=== PATIENT | female | born 1995 | race Caucasian/White ===

== ENCOUNTER 2022-10-23 09:21 | Observation (INO) | payer OTHER, SELFPAY ==
--- NOTE | 2022-10-23 09:21 | OBADM ---
This patient, Nirmala Hidalgo, admitted to the OB room Labor/Delivery/Recovery 105 for observation. Patient/family oriented to hospital policies and general routines including ID bracelet, bed and alarms, visiting hours, pain management, procedures, bathroom and other care routines, personal items, smoking policy, room service/diet, and visiting hours. Patient/Family are encouraged to report perceived risks to care and to ask questions if they do not understand what they are told or what they should do.
[2022-10-23 10:30] VITALS: BMI 34.7
--- NOTE | 2022-10-25 07:25 | PM.OBTRLD ---
OB - Triage/Final Diagnosis Visit Information Date of evaluation: 10/24/22 Reason for evaluation: threatened labor Comments/Additional reasons for admission: I have assessed the risk for this patient, Nirmala Hidalgo, and determined that she would benefit from observation care.
== END 2022-10-23 11:05 | disposition home or self-care (01) ==
PROVIDERS: Admitting Provider Obstetrics & Gynecology; Visit Provider Obstetrics & Gynecology
DX: O47.1 False labor at or after 37 completed weeks of gestation (principal); Z3A.40 40 weeks gestation of pregnancy
CPT/HCPCS: G0378; G0379

== ENCOUNTER 2022-10-23 21:35 | Observation (INO) | payer OTHER, SELFPAY ==
[2022-10-23 21:50] VITALS: BMI 34.5
[2022-10-23 22:50] VITALS: RESP 18; TEMP 36.4
--- NOTE | 2022-10-23 23:17 | OBADM ---
This patient, Nirmala Hidalgo, admitted to the OB room Labor/Delivery/Recovery 104 for observation. Patient/family oriented to hospital policies and general routines including ID bracelet, bed and alarms, visiting hours, pain management, procedures, bathroom and other care routines, personal items, smoking policy, room service/diet, and visiting hours. Patient/Family are encouraged to report perceived risks to care and to ask questions if they do not understand what they are told or what they should do.
--- NOTE | 2022-10-30 07:30 | PM.OBTRLD ---
OB - Triage/Final Diagnosis Visit Information Date of evaluation: 10/23/22 Reason for evaluation: threatened labor Comments/Additional reasons for admission: I have assessed the risk for this patient, Nirmala Hidalgo, and determined that she would benefit from observation care.
== END 2022-10-23 23:17 | disposition home or self-care (01) ==
PROVIDERS: Admitting Provider Obstetrics & Gynecology; Visit Provider Obstetrics & Gynecology
DX: O47.9 False labor, unspecified (principal); Z3A.00 Weeks of gestation of pregnancy not specified
CPT/HCPCS: G0378; G0379

== ENCOUNTER 2022-10-24 07:50 | Inpatient (IN) | payer OTHER, SELFPAY ==
[2022-10-24] VITALS (159 sets, daily range): BP systolic 57–151; BP diastolic 29–120; PULSE 42–164; RESP 18–20; TEMP 36.3–37.5; O2SAT 82–100; BMI 34.6
--- OUTSIDE RECORDS SUMMARY | 2022-10-24 08:07 | XMS_ITS | Clinical Summary ---
Author Name Transmission Worker Address [address] [place] [address] Phone Organization [facility] Address [address] [place] [address] Phone Care Team Providers Care Picker / Packer Name Role Phone ELISSA EstrellaLEONARD Cristóbal Hernandez [phone] Reason for Visit and Chief Complaint The Chief Complaint is: for about 2 weeks been having cough, headache, runny nose and right ear pain. not vaccinated. last exposure was . was tested couple weeks ago was negative and started zpak Problems Includes: Problems addressed during this encounter and other active Problems No Active Problems Plan of Treatment Pending Tests Order Diagnosis Results Due Ordering Tirso schwab In office procedures - *Clia Waived Labs SARS COVID TESTING (VERITOR) CONTACT WITH AND (SUSPECTED) EXPOSURE TO COVID-19 12/23/21 JOCELINE PEACOCKP - Return to the clinic if condition worsens or new symptoms arise Go to ER for difficulty breathing Recommend rest, increase fluid intake Assessments Includes: Assessments from this encounter - [H66.93 - Otitis media, unspecified, bilateral] Acute otitis media of both ears Medical Equipment - Implanted Devices Includes: Current Devices No Medical Equipment Recorded Medications Includes: Medications discussed during this encounter and other current Medications New / Renewed during this visit JOCELINE FLETCHER on 12/09/2021 Amoxicillin-Pot Clavulanate 875-125 MG Oral Tablet Provider: JOCELINE Siddiqui DIESEL POWER SHOVEL OPERATOR 10 day sup
--- OUTSIDE RECORDS SUMMARY | 2022-10-24 08:07 | XMS_ITS ---
Care Plan - [facility] Created on: October 24, 2022 BEAU RUIZ : 1995 Sex: Female Author Name Senior Architect Address [address] [place] [address] Phone Organization [facility] Address [address] [place] [address] Phone Care Team Providers Care Java Security Engineer Name Role Phone LEONARD BOWERS D.O. [phone]
--- OUTSIDE RECORDS SUMMARY | 2022-10-24 08:07 | XMS_ITS | Clinical Summary ---
Author Name Systems Operator Address [address] [place] [address] Phone Organization [facility] Address [address] [place] [address] Phone Care Team Providers Care Bead Forming Machine Set Up Operator Name Role Phone ELISSA Estrella LEONARD Ambrocio Mary [phone] Reason for Visit and Chief Complaint The Chief Complaint is: Pt c/o cough, congestion, runny nose. She was exposed on Friday and isn't vaccinated Problems Includes: Problems addressed during this encounter and other active Problems No Active Problems Plan of Treatment - Return to the clinic if condition worsens or new symptoms arise - Follow-up visit in 1-2 weeks with an office visit or sooner if symptoms persist or worsen - Patient to call if problem develops Assessments Includes: Assessments from this encounter - Acute sinusitis Instructions Includes: Instructions from this encounter Instructions to patient Go to the emergency room if condition worsens Watch for signs/symptoms of infection Watch for signs/symptoms of infection, return to the clinic if seen Education and Decision Aids were provided during visit for: Patient education about anti biotics: need to finish even if feeling better Medical Equipment - Implanted Devices Includes: Current Devices No Medical Equipment Recorded Medications Includes: Medications discussed during this encounter and other current Medications New / Renewed during this visit LUIS FERNANDO FARIAS on 11/29/2021
--- OUTSIDE RECORDS SUMMARY | 2022-10-24 08:07 | XMS_ITS ---
Author Name Neon Light Installer Address [address] [place] [address] Phone Organization [facility] Address [address] [place] [address] Phone Care Team Providers Care Cat Driver Name Role Phone LEONARD BOWERS D.O. [phone] Problems Includes: Active, inactive, and resolved Problems No Active Problems Plan of Treatment Findings Encounter Date Ordered return to the clinic if condition worsens or new symptoms arise COVID SICK VISIT- ESTABLISHED PATIENT with JOCELINE ROSARIO [facility] 12/09/2021 Ordered follow-up visit in 1 -2 weeks with an office visit or sooner if symptoms persist or worsen COVID SICK VISIT- NEW PATIENT with LUIS FERNANDO [facility] 11/29/2021 Ordered patient to call if p mariannelem develops COVID SICK VISIT- NEW PATIENT with LUIS FERNANDO [facility] 11/29/2021 Ordered return to the clinic if condition worsens or new symptoms arise COVID SICK VISIT- NEW PATIENT with LUIS FERNANDO [facility] 11/29/2021 Assessments Includes: Assessments for all patient encounters Findings Encounter Date Acute otitis media of both ears COVID SI CK VISIT- ESTABLISHED PATIENT with JOCELINE ROSARIO [facility] 12/09/2021 Acute sinusitis COVID SICK VISIT- NE W PATIENT with LUIS FERNANDO [facility] 11/29/2021 Medical Equipment - Implanted Devices Includes: Current and historical Devices No Medical Equipment Recorded Medications Includes: Current and historical Medications
--- NOTE | 2022-10-24 08:13 | LDADM ---
This patient, Nirmala Hidalgo, was admitted to Labor/Delivery/Recovery 105 on 10/24/22 at 07:50. Plans for labor, pain management and were discussed with patient. Patient/family oriented to hospital policies and general routines including ID bracelet, bed and alarms, visiting hours, pain management, procedures, bathroom and other care routines, personal items, smoking policy, room service/diet and guest tray routines, security routines, and visiting hours. Patient/Family are encouraged to report perceived risks to care and to ask questions if they do not understand what they are told or what they should do. See OBIX for further documentation.
[2022-10-24] MEDS: fentaNYL CITRATE INJ (*CRX) 100 MCG/2 ML VIAL 50 MCG IV PUSH (08:27)
[2022-10-24] MEDS: LACTATED RINGERS 1,000 ML 125 ML IV CONT ×4 (08:28→12:12)
[2022-10-24] MEDS: ONDANSETRON INJ 4 MG/2 ML VIAL IV PUSH (08:28)
[2022-10-24 08:36] LABS: Basophils Percent Auto 0.2 % (0.2-1.2); Eosinophils Percent Auto 0.1 % (0-4.4); Hematocrit 34.8 % (37.0-47.0); Hemoglobin 11.6 g/dL (12.0-15.0); Immature Granulocyte Absolute 0.08 K/mm3 (0.00-0.031); Immature Granulocyte Percent A 0.5 % (0-0.5); Lymphocytes Absolute Auto 1.77 K/mm3 (0.9-3.2); Mean Corpuscular HGB Conc 33.3 g/dl (32-36); Mean Corpuscular Hemoglobin 28.3 pg (26-34); Mean Corpuscular Volume 84.9 fl (80-100); Mean Platelet Volume 9.9 fl (7.4-10.4); Monocytes Absolute Auto 0.6 K/mm3 (0.1-0.6); Monocytes Percent Auto 4.3 % (2.6-8.5); Neutrophils Absolute Auto 12.2 K/mm3 (1.3-6.7); Neutrophils Percent Auto 82.9 % (45.5-73.1); Platelet Count Result 260 k/mm3 (150-375); Red Cell Distribution Width 13.7 % (11.5-14.5); White Blood Count 14.8 K/mm3 (4.5-10.0)
--- NOTE | 2022-10-24 08:36 | WPDOBADMIT ---
Obstetrics - Admit Note Admission Note: record reviewed. No pertinent additions to the history and/or any subsequent changes in the physical findings that are not consistent with the expected course of the were found. Pt arrived in labor SVE 5-6/90/-2 AROM small amount of clear odorless fluid, anticipate vaginal delivery Additions to the history and/or subsequent changes in the physical findings follow. None.
--- NOTE | 2022-10-24 09:39 | P.PNAN_ITS ---
Anes - Eval Pre Procedure Procedure: Labor Epidural Date/Time: 10/24/22 09:39 Surgeon: Jaquan Preop Diagnosis: Labor pain, IUP Pre Op Diagnosis: iol Patient Data Age: 27 Gender: F Height: 1.55 m Weight: 83.2 kg Last Vital Signs Temp 36.5 C 10/24/22 08:30 Pulse 57 L 10/24/22 09:39 BP 106/62 10/24/22 09:39 Pulse Ox 100 10/24/22 09:38 Allergies Allergy/AdvReac Type Severity Reaction Status Date / Time No Known Allergies Allergy Verified 10/09/22 13:44 Laboratory Tests 10/24/22 10/24/22 08:19 08:19 WBC 14.8 K/mm3 H K/mm3 (4.5-10.0) RBC 4.10 M/mm3 L M/mm3 (4.2-5.4) Hgb 11.6 g/dL L g/dL (12.0-15.0) Hct 34.8 % L % (37.0-47.0) MCV 84.9 fl fl (80-100) MCH 28.3 pg pg (26-34) MCHC 33.3 g/dl g/dl (32-36) RDW 13.7 % % (11.5-14.5) Plt Count 260 k/mm3 k/mm3 (150-375) MPV 9.9 fl fl (7.4-10.4) Immature Gran % (Auto) 0.5 % % (0-0.5) Neut % (Auto) 82.9 % H % (45.5-73.1) Lymph % (Auto) 12.0 % L % (18.3-44.2) [place] % (Auto) 4.3 % % (2.6-8.5) Eos % (Auto) 0.1 % % (0-4.4) Baso % (Auto) 0.2 % % (0.2-1.2) Lymph # (Auto) 1.77 K/mm3 K/mm3 (0.9-3.2) [place] # (Auto) 0.6 K/mm3 K/mm3 (0.1-0.6) Eos # (Auto) 0.0 K/mm3 K/mm3 (0-0.3) Baso # (Auto) 0.0 K/mm3 K/mm3 (0.0-0.1) Abs Immat Gran (auto) 0.08 K/mm3 H K/mm3 (0.00-0.031) Absolute Neuts (auto) 12.2 K/mm3 H K/mm3 (1.3-6.7) Absolute Nucleated RBC 0.0 K/mm3 K/mm3 (0.0-0.012) Nucleated RBC % 0.0 % % (0.0-0.2) RPR Pending Patient hx anesthesia problems: none Family hx anesthesia problems: none Results Review: All pre-operative results and documents have been reviewed as part of the pre- operative evaluation. [facility] Family History Family History Other No pertinent family history Social History Social History Smoking packs per day: 0.5 Smoking cigarettes per day: 10.0 Years smoked: 12 Smoking pack-years: 6.00 Smoking status: Current every day smoker Tobacco type: cigarettes Second hand tobacco smoke exposure: Yes Substance use: current Last use: 10/07/22 Lack of Transportation: No Lack of Food: Never True Current Housing: I Have Housing Concerned About Future Housing: No Difficulty Paying Gas/Electric Bills: No Difficulty Paying for Meds: No Currently Unemployed: No Education: High School Diploma/GED Difficulty w/ Childcare or Family Care: No Spiritual care concerns: No Exam Day of Procedure 10/24/22 09:39 Heart: regular rate and rhythm Lungs: normal air movement Airway: Mallampati scale class II Neurological: alert and oriented
[2022-10-24 10:43] LABS: Amphetamine Screen Urine Negative (Negative); Barbiturate Screen Urine Negative (Negative); Benzodiazepines Screen Urine Negative (Negative); Cannabinoid Screen Urine Positive (Negative); Cocaine Screen Urine Negative (Negative); Methadone Screen Urine Negative (Negative); Opiate Screen Urine Negative (Negative); Phencyclidine Screen Urine Negative (Negative)
[2022-10-24] MEDS: OXYTOCIN 30 UNITS/NS 500 ML 30 UNITS/500 ML BAG IV CONT (11:38)
[2022-10-24 12:14] LABS: Rapid Plasma Reagin Non-Reactive (NonReactive)
--- NOTE | 2022-10-24 16:12 | PM.OBPRVD ---
OB - Delivery Note Procedure Delivery date: 10/24/22 Procedure: Intrapartal Events: Ineffetive Pushing/Maternal Exhaustion Induction method: None Delivery augmentation: Rupture of Membranes and Pitocin Delivery monitor: External FHT and Internal Uterine Route of delivery: Laceration Description: None Specimen: No Quantitative Blood Loss (ml): 60 Anesthesia type: Epidural Disposition: Floor Narrative: mom and baby stable and doing skin to skin Baby Date of : 10/24/22 Time of : 15:59 Weeks of gestation at delivery: 40 Infant gender: Male Weight (pounds): 6 Weight (ounces): 8 presentation: vertex position: Left Occiput Anterior Placenta delivery description: Spontaneous and Other (short cord) Cord Vessel Description: 3 Vessels, Clamped/Cut and Delayed Cord Clamping (60 seconds) score one minute: 7 score five minutes: 9
[2022-10-24] MEDS: IBUPROFEN 600 MG TABLET PO (17:36)
--- NOTE | 2022-10-24 18:37 | PC.NURSE ---
Patient transferred to post room #283 per wheelchair from labor and delivery. Support person present. Oriented to unit, room, information board, rooming in, admission packet and security measures. Patient verbalizes understanding.
[2022-10-25 04:25] VITALS: BP 103/42; PULSE 63; RESP 16; TEMP 36.7
[2022-10-25 05:37] LABS: Hematocrit 29.2 % (37.0-47.0); Hemoglobin 9.6 g/dL (12.0-15.0)
--- NOTE | 2022-10-25 07:47 | PM.OBPNVD ---
OB - PN: Subj Subjective Date/time seen: 10/25/22 07:47 s/p vaginal delivery day 1 OB - PN: Obj Data Labs 10/25/22 04:28 Labs: Laboratory Results - last 24 hr 10/24/22 10/24/22 10/24/22 08:19 08:19 08:19 WBC 14.8 H RBC 4.10 L Hgb 11.6 L Hct 34.8 L MCV 84.9 MCH 28.3 MCHC 33.3 RDW 13.7 Plt Count 260 MPV 9.9 Immature Gran % (Auto) 0.5 Neut % (Auto) 82.9 H Lymph % (Auto) 12.0 L [place] % (Auto) 4.3 Eos % (Auto) 0.1 Baso % (Auto) 0.2 Lymph # (Auto) 1.77 [place] # (Auto) 0.6 Eos # (Auto) 0.0 Baso # (Auto) 0.0 Abs Immat Gran (auto) 0.08 H Absolute Neuts (auto) 12.2 H Absolute Nucleated RBC 0.0 Nucleated RBC % 0.0 Urine Opiates Screen Urine Methadone Screen Ur Barbiturates Screen Ur Phencyclidine Scrn Ur Amphetamine Screen U Benzodiazepines Scrn Urine Cocaine Screen U Cannabinoids Screen RPR Non-reactive Blood Type A Positive Antibody Screen Negative 10/24/22 10/25/22 09:09 04:28 WBC RBC Hgb 9.6 L Hct 29.2 L MCV MCH MCHC RDW Plt Count MPV Immature Gran % (Auto) Neut % (Auto) Lymph % (Auto) [place] % (Auto) Eos % (Auto) Baso % (Auto) Lymph # (Auto) [place] # (Auto) Eos # (Auto) Baso # (Auto) Abs Immat Gran (auto) Absolute Neuts (auto) Absolute Nucleated RBC Nucleated RBC % Urine Opiates Screen Negative Urine Methadone Screen Negative Ur Barbiturates Screen Negative Ur Phencyclidine Scrn Negative Ur Amphetamine Screen Negative U Benzodiazepines Scrn Negative Urine Cocaine Screen Negative U Cannabinoids Screen Positive A RPR Blood Type Antibody Screen OB - PN A/P Plan day: 1 Plan: routine care and discharge home Time Spent With Patient Time: Total time spent is greater than 50% in coordination of care (as documented) at patient's floor/unit and/or counseling patient: Review of Systems Review of Systems: All systems reviewed & are unremarkable except as noted in HPI and below Exam Const: General: cooperative, healthy appearing and comfortable
--- NOTE | 2022-10-25 07:48 | P.DS_ITS ---
DS: Admitting Diagnosis Discharge Date 10/25/22 Admitting Diagnosis Labor OB - DS: Summary OB Procedures : None OB Procedures Intrapartum: Spontaneous Vag Delivery OB Procedures: : None Time Spent with Patient Time attestation: Total time spent providing and/or coordinating discharge services: DS: Data Data Completed and Pending Labs on day of discharge: Labs from last 24 hours 10/25/22 10/24/22 10/24/22 04:28 09:09 08:19 WBC RBC Hgb 9.6 L Hct 29.2 L MCV MCH MCHC RDW Plt Count MPV Immature Gran % (Auto) Neut % (Auto) Lymph % (Auto) [place] % (Auto) Eos % (Auto) Baso % (Auto) Lymph # (Auto) [place] # (Auto) Eos # (Auto) Baso # (Auto) Abs Immat Gran (auto) Absolute Neuts (auto) Absolute Nucleated RBC Nucleated RBC % Urine Opiates Screen Negative Urine Methadone Screen Negative Ur Barbiturates Screen Negative Ur Phencyclidine Scrn Negative Ur Amphetamine Screen Negative U Benzodiazepines Scrn Negative Urine Cocaine Screen Negative U Cannabinoids Screen Positive A RPR Blood Type A Positive Antibody Screen Negative 10/24/22 10/24/22 08:19 08:19 WBC 14.8 H RBC 4.10 L Hgb 11.6 L Hct 34.8 L MCV 84.9 MCH 28.3 MCHC 33.3 RDW 13.7 Plt Count 260 MPV 9.9 Immature Gran % (Auto) 0.5 Neut % (Auto) 82.9 H Lymph % (Auto) 12.0 L [place] % (Auto) 4.3 Eos % (Auto) 0.1 Baso % (Auto) 0.2 Lymph # (Auto) 1.77 [place] # (Auto) 0.6 Eos # (Auto) 0.0 Baso # (Auto) 0.0 Abs Immat Gran (auto) 0.08 H Absolute Neuts (auto) 12.2 H Absolute Nucleated RBC 0.0 Nucleated RBC % 0.0 Urine Opiates Screen Urine Methadone Screen Ur Barbiturates Screen Ur Phencyclidine Scrn Ur Amphetamine Screen U Benzodiazepines Scrn Urine Cocaine Screen U Cannabinoids Screen RPR Non-reactive Blood Type Antibody Screen Discharge Plan Discharge Attending physician on discharge: Kevin Partida Discharging Clinician: Beverly Moreno Patient Disposition: Home, Self-Care Activity: pelvic rest Diet: regular Patient Instructions: Antibiotic Form, How to Stop Smoking (GEN) Stand Alone Forms: General Discharge Information Follow-up/Referrals: Beverly Moreno CNM [Certified Nurse Chief Transfer And Pumphouse Operator] - 4 Weeks Discharge Medications: New ibuprofen 600 mg Tablet 600 mg PO Q6H PRN (Reason: Cramping) Qty: 30 0RF Date of admission: 10/24/22 07:50 Primary Care Provider: PHYSICIAN,BREAD DOUGH MIXER Admitting Provider: Kevin Partida Attending physician on admission: Kevin Partida Condition: Stable
[2022-10-25 08:10] VITALS: BP 112/62; PULSE 55; RESP 16; TEMP 36.4; O2SAT 99
[2022-10-25] MEDS: DOCUSATE SODIUM 100 MG CAPSULE PO (08:17)
[2022-10-25] MEDS: IBUPROFEN 600 MG TABLET PO (08:17)
[2022-10-25] MEDS: POLYSACCHARIDE IRON COMPLEX 150 MG CAPSULE PO (08:17)
[2022-10-25] MEDS: WITCH HAZEL 40 PADS 1 PAD TOPICAL (08:23)
[2022-10-25] MEDS: BENZOCAINE 20% AER SPR (*SP) 56 GM CAN 1 SPRAY TOPICAL (08:23)
--- NOTE | 2022-10-25 09:31 | WPDANLDPN2 ---
Anes-Prog Note L&D Date/Time: 10/25/22 09:31 Comfortable throughout: labor and delivery Neuraxial method: epidural Epidural/Spinal procedure site: clean & non-tender Neuro status: Neuro function grossly intact. Cardiovascular status: normal Respiratory status: normal Airway patency: baseline Mental status: baseline Post-Op hydration status: normal Vital Signs: Last Vital Signs Temp 36.7 C 10/25/22 04:25 Pulse 63 10/25/22 04:25 Resp 16 10/25/22 04:25 BP 103/42 L 10/25/22 04:25 Pulse Ox 100 10/24/22 16:48 O2 Del Method Room Air 10/24/22 20:20 Pain score (VAS): 0 I/O: Intake & Output 10/24/22 10/25/22 10/25/22 23:59 07:59 15:59 Output Total 163 Balance -163 Post-procedural complaints: none Patient feedback: Patient satisfied with anesthetic care.
--- NOTE | 2022-10-25 10:20 | PCCCNOTE ---
Care Coordination Note: Met with pt. and ABELARDO Duke today. This is their 3rd child. Pt. lives at home with Srikanth and their two children. They have all necessary equipment at home for baby including a car seat, crib, clothing, diapers, and formula. They both report family support. Pt. has used [place] services in the past and is current with [facility]. Pt. reports she plans to establish again with [facility] and use the [place] office. resources provided. basket provided. Pt. confirms she has spoken to the physician and has been advised to stop/avoid smoking in front of her children both tobacco and marijuana. Pt. confirms she recreationally uses marijuana. Denies any other substance use. Pt. denies any other needs. Hopeful to discharge home soon.
[2022-10-25 11:44] VITALS: BP 99/51; PULSE 63; RESP 16; TEMP 36.6; O2SAT 99
--- NOTE | 2022-10-25 11:59 | PC.NURSE ---
Patient viewed the discharge video Mother & Baby Care, The First Two Weeks . Patient was given the opportunity and encouraged to ask questions. Patient verbalized understanding of information shared and has been given the mother/baby guide for home reference.
[2022-10-25] MEDS: medroxyPROGESTERone ACETATE IM 150 MG/ML SYR IM (16:43)
[2022-10-26 07:46] VITALS: BP 105/62; PULSE 50; RESP 16; TEMP 36.6; O2SAT 100
== END 2022-10-25 17:25 | disposition home or self-care (01) | DRG 560 ==
LOC: ANHLDR 13:19 → ANHOB2 18:37
PROVIDERS: Advanced Practice Midwife; Admitting Provider Obstetrics & Gynecology; Visit Provider Obstetrics & Gynecology
DX: O69.3XX0 Labor and delivery complicated by short cord, not applicable or unspecified (principal); O36.8330 Maternal care for abnormalities of the fetal heart rate or rhythm, third trimester, not applicable or unspecified; Z37.0 Single live birth; Z3A.40 40 weeks gestation of pregnancy
CPT/HCPCS: 36415; 80307; 85014; 85018; 85025; 86592; 86850; 86900; 86901; A9270; J1050; J2405; J2590; J2795; J3010; J7120

== ENCOUNTER 2022-12-17 16:06 | Emergency (ER) | payer OTHER, SELFPAY ==
[2022-12-17 16:12] VITALS: BP 101/58; PULSE 62; RESP 18; TEMP 37; O2SAT 100
--- NOTE | 2022-12-17 16:20 | ED.GENADULT ---
HPI - General Adult General Chief complaint: Skin/Abscess/Foreign Body Stated complaint: knot on left side of neck Time Seen by Provider: 12/17/22 16:21 Source: patient, RN notes reviewed and old records reviewed Mode of arrival: ambulatory Limitations: no limitations History of Present Illness HPI narrative: 27-year-old female presents to the [facility] with complaints of a swollen lymph node to the left anterior neck. Only 1 noticed swollen. No redness. No ear pain throat pain or sinus congestion. Denies any fevers Nontender, mobile. Noticed it this morning Related Data Allergies Allergy/AdvReac Type Severity Reaction Status Date / Time No Known Allergies Allergy Verified 12/17/22 16:14 Review of Systems Review of Systems: All systems reviewed & are unremarkable except as noted in HPI and below Constitutional: Constitutional: Reports no additional constitutional complaints Eyes: Eyes: Reports no additional eye complaints ENT: Reports as per HPI Comments: Swollen lymph node Cardiovascular: Cardiovascular: Reports no additional cardiovascular complaints, Denies chest pain and Denies dyspnea Respiratory: Respiratory: Reports no additional respiratory complaints, Denies chest congestion, Denies cough and Denies dyspnea Gastrointestinal: Gastrointestinal: Reports no additional gastrointestinal complaints, Denies abdominal pain, Denies nausea and Denies vomiting Musculoskeletal: Musculoskeletal: Reports no additional musculoskeletal complaints Integumentary/Breasts: Skin/Breast: Reports system reviewed and no additional complaints, except as docu Neurologic: Reports system reviewed and no additional complaints, except as documented Psychiatric: Psychiatric: Reports no additional psychiatric complaints Allergic/Immunologic: Allergic/Immunologic: Reports no additional allergic/immunologic complaints [facility] Family History Family History Other No pertinent family history Social History Social History Smoking packs per day: 0.5 Smoking cigarettes per day: 10.0 Years smoked: 12 Smoking pack-years: 6.00 Smoking status: Current every day smoker Tobacco type: cigarettes Second hand tobacco smoke exposure: Yes Substance use: current Last use: 10/07/22 Lack of Transportation: No Lack of Food: Never True Current Housing: I Have Housing Concerned About Future Housing: No Difficulty Paying Gas/Electric Bills: No Difficulty Paying for Meds: No Currently Unemployed: No Education: High School Diploma/GED Difficulty w/ Childcare or Family Care: No Spiritual care concerns: No Comments At the time of my signature, I reviewed and agree with the nursing past medical, surgical, social, and family history. There is no relevant family history pertinent to the patient complaint. Exam Const: General: cooperative, healthy appearing, comfortable, no acute distress, well developed, alert and well nourished Nutritional Appearance: well nourished Orientation/consciousness: patient oriented x3 Limitations: no limitations HENMT: Head: normal to inspection Ears: hearing grossly normal bilaterally and external ears normal Face/Nose/Sinus: Normal external nose present, Normal nares present, Normal nasal mucous membranes and turbinates present and normal facial exam Face and sinus: normal facial exam Mouth: Yes Normal oral and palatal mucosa present, Yes lip normal and Yes moist mucous membranes Throat: posterior oropharynx normal and uvula midline Eyes: General: appearance normal, both eyes and all related structures Alignment and Position: alignment normal Periorbital: periorbital findings normal Conjunctivae: conjunctivae normal Pupils: Equal, round and reactive pupils present EOM: EOMs intact bilaterally Neck: Neck: normal visual inspection, full ROM, no meningeal signs and lymphad
== END 2022-12-17 16:38 | disposition home or self-care (01) ==
PROVIDERS: Emergency Provider Nurse Practitioner; PCP Family Medicine
DX: R59.1 Generalized enlarged lymph nodes (principal); F17.210 Nicotine dependence, cigarettes, uncomplicated
CPT/HCPCS: 99213; G0463

== ENCOUNTER 2022-12-28 14:25 | Emergency (ER) | payer OTHER, SELFPAY ==
--- NOTE | ~2022-12-28 | CT_ITS ---
CT scan of the Neck Technique: 2.5 mm axial scans were obtained through the neck after intravenous administration of 75 c c Omnipaque 350. Coronal and sagittal reconstructions of the neck were obtained. Dose reduction techn ique was used on this scan by utilizing automated exposure control and iterative reconstruction techn ique. The dose-length product (DLP) was 502.19 mGy-cm. Clinical History: Left submandibular mass Findings: There is a 2.3 x 2.1 x 2.7 cm mass just posterior to the left submandibular gland, and along the ante romedial margin of the left sternocleidomastoid muscle, with peripheral soft tissue density and centr al fluid attenuation, compatible with central necrosis. Lesion is just lateral to the left carotid sh eath structures. Parapharyngeal spaces appear normal bilaterally. The parotid and submandibular gland s themselves appear normal. The pharyngeal mucosal spaces appear normal. No soft tissue masses are seen in the neck. The thyroid gland appears normal. Images of the lung apices reveal no abnormalities. Impression: 2.3 x 2.1 x 2.7 cm centrally necrotic mass in the left, as detailed above, most compatible with an en larged, centrally necrotic lymph node. This could reflect suppurative lymphadenitis or other infectio us/inflammatory condition. Neoplastic disease overall is felt to be less likely, especially given pat ient age. Consider short-term CT follow-up to reevaluate after any appropriate interval therapy, vers us tissue sampling/aspiration. Reviewed, dictated and finalized at [facility]. ING OPERATOR Impression: 2.3 x 2.1 x 2.7 cm centrally necrotic mass in the left, as detailed above, most compatible with an enlarged, centrally necrotic lymph node. This could reflect suppurative lymphadenitis or other infectious/inflammatory condition. Neoplast ic disease overall is felt to be less likely, especially given patient age. Con marketing finance specialist short-term CT follow-up to reevaluate after any appropriate interval ther apy, versus tissue sampling/aspiration.
[2022-12-28 14:27] VITALS: BP 114/63; PULSE 78; RESP 16; TEMP 35.9; O2SAT 100
--- NOTE | 2022-12-28 14:41 | ED.SKABFB ---
HPI - Skin/Abscess/Foreign Bdy General Chief complaint: Skin/Abscess/Foreign Body Stated complaint: abscess Time Seen by Provider: 12/28/22 14:41 Source: patient Mode of arrival: ambulatory Limitations: no limitations History of Present Illness HPI narrative: 27 years old white female presents with painful lump at left submandibular area started 2 weeks ago, started on a steroid 1-1/2 weeks ago without any improvement. She denies any fever, chills, nausea, vomiting, sore throat, runny nose, sinus pain or ear pain, or difficulty swallowing or breathing. Patient is healthy otherwise, she smokes tobacco, marijuana and drinks occasionally Related Data Allergies Allergy/AdvReac Type Severity Reaction Status Date / Time No Known Allergies Allergy Verified 12/28/22 14:32 Review of Systems Review of Systems: All systems reviewed & are unremarkable except as noted in HPI and below PMFSH Family History Family History Other No pertinent family history Social History Social History Smoking packs per day: 0.5 Smoking cigarettes per day: 10.0 Years smoked: 12 Smoking pack-years: 6.00 Smoking status: Current every day smoker Tobacco type: cigarettes Second hand tobacco smoke exposure: Yes Substance use: current Last use: 10/07/22 Lack of Transportation: No Lack of Food: Never True Current Housing: I Have Housing Concerned About Future Housing: No Difficulty Paying Gas/Electric Bills: No Difficulty Paying for Meds: No Currently Unemployed: No Education: High School Diploma/GED Difficulty w/ Childcare or Family Care: No Spiritual care concerns: No Exam Narrative: General appearance: Well-developed, well-nourished Skin: Normal color Head: Normocephalic, nontraumatic Eyes: Clear conjunctiva ENT: Oropharynx normal, ears normal, nose normal Neck: Supple, nontender, tender mass, 3 x 3 cm left submandibular/upper neck, no erythema, no discharge, not attached to the skin, mobile. Chest and respiratory: Airway patent, no respiratory distress, no accessory muscle use Heart: Regular rate/rhythm Abdomen: Soft, nontender, no organomegaly, quiet bowel sounds Vascular: Normal peripheral pulses, normal capillary refill. Musculoskeletal: Normal range of motion, nontender back Neurologic: Alert and oriented ?3, INVESTIGATIVE AGENT is normal as tested, no gross motor deficit Course Vital Signs Vital signs: Vital Signs Temperature 35.9 C L 12/28/22 14:27 Pulse Rate 78 12/28/22 14:27 Respiratory Rate 16 12/28/22 14:27 Blood Pressure 114/63 12/28/22 14:27 Pulse Oximetry 100 12/28/22 14:27 Oxygen Delivery Room Air 12/28/22 14:27 Temperature 35.9 C L 12/28/22 14:27 Pulse Rate 78 12/28/22 14:27 Respiratory Rate 16 12/28/22 14:27 Blood Pressure 114/63 12/28/22 14:27 Pulse Oximetry 100 12/28/22 14:27 Oxygen Delivery Room Air 12/28/22 14:27 MDM - Skin/Abscess/Foreign Bdy MDM Narrative Medical decision making narrative: Patient presents with a tender lump at the left submandibular area 2 weeks ago, started on steroid by urgent care 1-1/2 weeks ago without any improvement. Patient reported having slight left ear aches at that time which resolved. Currently she denies any fever, chills, nausea, vomiting, ear pain or sore throat. Physical examination showed a tender lump at the left submandibular area consistent with lymphadenitis. I plan to check CBC, CMP, sed rate and CRP to rule out the possibility of abscess. Work-up showed nonspecific elevated white count of 10.8, elevated CRP of 1.2, normal xochitl
[2022-12-28 15:10] LABS: Basophils Percent Auto 0.4 % (0.2-1.2); Eosinophils Absolute Auto 0.1 K/mm3 (0-0.3); Hematocrit 38.3 % (37.0-47.0); Immature Granulocyte Absolute 0.05 K/mm3 (0.00-0.031); Immature Granulocyte Percent A 0.5 % (0-0.5); Lymphocytes Absolute Auto 2.96 K/mm3 (0.9-3.2); Lymphocytes Percent Auto 28.7 % (18.3-44.2); Mean Corpuscular HGB Conc 31.3 g/dl (32-36); Mean Corpuscular Hemoglobin 28.3 pg (26-34); Mean Corpuscular Volume 90.3 fl (80-100); Mean Platelet Volume 9.7 fl (7.4-10.4); Monocytes Absolute Auto 0.6 K/mm3 (0.1-0.6); Monocytes Percent Auto 6.1 % (2.6-8.5); Neutrophils Absolute Auto 6.5 K/mm3 (1.3-6.7); Neutrophils Percent Auto 63.3 % (45.5-73.1); Platelet Count Result 278 k/mm3 (150-375); Red Blood Count 4.24 M/mm3 (4.2-5.4); White Blood Count 10.3 K/mm3 (4.5-10.0)
[2022-12-28 15:14] LABS: Estimated CRCL calculation 81 ml/min; Estimated Glomerular Filt Rate > 60
[2022-12-28 15:23] LABS: Alanine Aminotransferase 19 U/L (6-35); Albumin Level 3.9 g/dL (3.5-5.1); Alkaline Phosphatase 67 U/L (38-126); Anion Gap 5 mmol/L (8-16); Aspartate Amino Transferase 20 U/L (14-36); Bilirubin,Total 0.4 mg/dL (0.2-1.3); Blood Urea Nitrogen 7 mg/dL (7-17); CRP 1.2 mg/dL (<1.0); Calcium 8.2 mg/dL (8.4-10.2); Carbon Dioxide 25 mmol/L (22-30); Chloride 104 mmol/L (98-107); Estimated CRCL calculation 81 ml/min; Estimated Glomerular Filt Rate > 60; Glucose 86 mg/dL (65-110); Potassium 3.6 mmol/L (3.4-5.0); Sodium 134 mmol/L (137-145)
[2022-12-28 15:47] LABS: Erythrocyte Sedimentation Rate 22 mm/hr (0-20)
== END 2022-12-28 15:48 | disposition home or self-care (01) ==
PROVIDERS: Emergency Provider Emergency Medicine
DX: L04.0 Acute lymphadenitis of face, head and neck (principal); F17.210 Nicotine dependence, cigarettes, uncomplicated
CPT/HCPCS: 36415; 70491; 80053; 85025; 85652; 86140; 99284; Q9967

== ENCOUNTER 2023-04-16 17:40 | Emergency (ER) | payer OTHER, SELFPAY ==
[2023-04-16 17:59] VITALS: BP 114/67; PULSE 91; RESP 16; TEMP 36.2; O2SAT 100
--- NOTE | 2023-04-16 18:21 | ED.URI ---
HPI - URI/Sore Throat General Chief Complaint: Upper Respiratory Infection Stated Complaint: Ear Pain/Sore Throat Time Seen by Provider: 04/16/23 18:21 Source: patient and RN notes reviewed Mode of arrival: ambulatory Limitations: no limitations History of Present Illness HPI Narrative: 28-year-old female presented for complaint of bilateral ear pressure for 3 days. Endorses the left ear has had yellow drainage, with decreased hearing. She denies tinnitus, dizziness, nausea vomiting, fevers or chills. She was seen last week at outside urgent care for sore throat, tested negative for strep. Denies sick contacts. Taking Tylenol for symptoms. MD elicited complaint: cough Related Data Home Medications Medication Instructions Recorded Confirmed ibuprofen 800 mg tablet mg 04/16/23 medroxyprogesterone 150 mg/mL mg IM 04/16/23 intramuscular suspension Allergies Allergy/AdvReac Type Severity Reaction Status Date / Time No Known Allergies Allergy Verified 12/28/22 14:32 Review of Systems Review of Systems: CONSTITUTIONAL:Denies malaise, chills, sweats, fever EYES: Denies visual changes, redness, or discharge ENT: Reports otalgia denies rhinorrhea, congestion, sinus pain CARDIOVASCULAR: Denies chest pain, palpitations, edema RESPIRATORY: Denies dyspnea GASTROINTESTINAL: Denies abdominal pain, nausea, vomiting, diarrhea SKIN: Denies rash or itching MUSCULOSKELETAL: Endorses myalgia NEUROLOGIC: Denies headache PMF Past Medical History Medical History (Updated 04/16/23 @ 18:37 by Carmina Arnett APRN) No pertinent past medical history Family History Family History Other No pertinent family history Social History Social History Smoking packs per day: 0.5 Smoking cigarettes per day: 10.0 Years smoked: 12 Smoking pack-years: 6.00 Smoking status: Current every day smoker Tobacco type: cigarettes Second hand tobacco smoke exposure: Yes Substance use: current Last use: 10/07/22 Lack of Transportation: No Lack of Food: Never True Current Housing: I Have Housing Concerned About Future Housing: No Difficulty Paying Gas/Electric Bills: No Difficulty Paying for Meds: No Currently Unemployed: No Education: High School Diploma/GED Difficulty w/ Childcare or Family Care: No Spiritual care concerns: No Exam Narrative: GENERAL: Ill-appearing, nontoxic no acute distress. HEAD: Normocephalic EYES: PERRLA, conjunctivae clear ENT: Mucous membranes moist. Right TM erythematous and bulging; Left canal erythematous and swollen with purulent drainage; no tragal tenderness. Oropharynx erythematous without lesions or exudate NECK: Supple. No lymphadenopathy CHEST: Clear to auscultation, breath sounds equal. No wheezing, rhonchi, rales, or stridor. No respiratory distress, speaks in full sentences. HEART: Regular rate and rhythm. No murmur heard. SKIN: Warm, dry, no rash. NEURO: Alert and oriented x3. PSYCH: Normal mood and affect Course Course Emergency Course: Patient is aware of diagnosis, understands and agrees to treatment plan. Anticipatory guidance given. Patient agrees to follow-up as directed and is aware of reasons to seek care at the emergency department. Portions of this record may have been created with voice recognition software Level of Care: Express Care Visit Vital Signs Vital signs: Vital Signs Temperature 97.1 F L 04/16/23 17:59 Pulse Rate 91 04/16/23 17:59 Respiratory Rate 16 04/16/23 17:59 Blood Pressure 114/67 04/16/23 17:59 Pulse Oximetry 100 04/16/23 17:59 Oxygen Delivery Room Air 04/16/23 17:59 Temperature 97.1 F L 04/16/23 17:59 Pulse Rate 91 04/16/23 17:59 Respiratory Rate 16 04/16/23 17:59 Blood Pressure 114/67 04/16/23 17:59 Pulse Oximetry 100 04/16/23 17:59 Oxygen Deliv
== END 2023-04-16 18:30 | disposition home or self-care (01) ==
PROVIDERS: Emergency Provider Nurse Practitioner Family
DX: J02.0 Streptococcal pharyngitis (principal); H66.001 Acute suppurative otitis media without spontaneous rupture of ear drum, right ear; H60.502 Unspecified acute noninfective otitis externa, left ear; F17.210 Nicotine dependence, cigarettes, uncomplicated
CPT/HCPCS: 87880; 99213; G0463

== ENCOUNTER 2023-08-14 09:39 | Emergency (ER) | payer OTHER, SELFPAY ==
--- NOTE | 2023-08-14 09:42 | ED.URI ---
HPI - URI/Sore Throat General Chief Complaint: Ear Stated Complaint: Sore Throat/Right Ear Pain Source: patient and RN notes reviewed History of Present Illness HPI Narrative: 28 yo F presents to urgent care with complaints of sore throat and right ear pain since last night. Pt admits to having congestion and runny nose x 2 weeks that is is improving. Pt states she now has a cough as well. Denies any fevers, chills, chest pain, SOB, N/V/D. Pt has been taking cough drops. Related Data Allergies Allergy/AdvReac Type Severity Reaction Status Date / Time No Known Allergies Allergy Verified 04/19/23 16:43 Review of Systems Review of Systems: Pertinent positives and pertinent negatives per HPI. [facility] Past Medical History Medical History (Updated 08/14/23 @ 10:12 by Elba Norman, OFFICIAL GREETER) No pertinent past medical history Family History Family History Other No pertinent family history Social History Social History Smoking packs per day: 0.5 Smoking cigarettes per day: 10.0 Years smoked: 12 Smoking pack-years: 6.00 Smoking status: Current every day smoker Tobacco type: cigarettes Second hand tobacco smoke exposure: Yes Substance use: current Last use: 10/07/22 Lack of Transportation: No Lack of Food: Never True Current Housing: I Have Housing Concerned About Future Housing: No Difficulty Paying Gas/Electric Bills: No Difficulty Paying for Meds: No Currently Unemployed: No Education: High School Diploma/GED Difficulty w/ Childcare or Family Care: No Spiritual care concerns: No Comments At the time of my signature, I reviewed and agree with the nursing past medical, surgical, social, and family history. There is no relevant family history pertinent to the patient complaint. Exam Narrative: GENERAL: This is a well-nourished, well-developed patient, in no apparent distress. HEAD: normocephalic, atraumatic. EYES: Sclera clear/white. Vision is grossly intact. EARS: External ears normal, auditory canals clear and without drainage, Left TM normal without perforation. Hearing grossly intact. Right TM bulging and erythremic. NOSE: External nose normal with no obvious nasal discharge, nares without redness, no rhinorrhea. THROAT: Mucous membranes moist, posterior pharynx erythremic. No exudate noted. Bilateral tonsils erythremic and 1+. NECK: Neck supple, non-tender without lymphadenopathy, masses or thyromegaly. CARDIOVASCULAR: Regular rate and rhythm without murmurs, gallops, or rubs. RESPIRATORY: Clear to auscultation. Breath sounds equal bilaterally. No wheezes, rales, or rhonchi. SKIN: warm, intact with no suspicious lesions or rash, good texture and turgor. NEURO: awake, alert, and oriented to person, place and time. There were no obvious focal neurologic abnormalities. Course Course Level of Care: Express Care Visit Vital Signs Vital signs: Vital Signs Temperature 99.3 F 08/14/23 09:45 Pulse Rate 83 08/14/23 09:45 Respiratory Rate 18 08/14/23 09:45 Blood Pressure 102/56 L 08/14/23 09:45 Pulse Oximetry 99 08/14/23 09:45 Oxygen Delivery Room Air 08/14/23 09:45 Temperature 99.3 F 08/14/23 09:55 Pulse Rate 83 08/14/23 09:55 Respiratory Rate 18 08/14/23 09:55 Blood Pressure 102/56 L 08/14/23 09:55 Pulse Oximetry 99 08/14/23 09:55 Oxygen Delivery Room Air 08/14/23 09:55 reviewed MDM - URI/Sore Throat MDM Narrative Medical decision making narrative: Take antibiotics as directed. May given ibuprofen and/or Tylenol as needed for pain and/or fever. Follow up with primary care provider in 7-10 days to have ear rechecked. Differential Diagnosis Differential diagnosis: Likely upper respiratory infection, otitis media and pharyngitis Critical Care Time Critical Care Time Critical Care Time: No Discharge Pl
[2023-08-14 09:45] VITALS: BP 102/56; PULSE 83; RESP 18; TEMP 37.4; O2SAT 99
[2023-08-14 09:55] VITALS: BP 102/56; PULSE 83; RESP 18; TEMP 37.4; O2SAT 99
== END 2023-08-14 10:17 | disposition home or self-care (01) ==
PROVIDERS: Emergency Provider Nurse Practitioner Family
DX: H66.90 Otitis media, unspecified, unspecified ear (principal); F17.210 Nicotine dependence, cigarettes, uncomplicated
CPT/HCPCS: 99213; G0463

== ENCOUNTER 2023-09-19 10:40 | Emergency (ER) | payer OTHER, SELFPAY ==
[2023-09-19 10:53] VITALS: BP 110/71; PULSE 70; RESP 18; TEMP 36.6; O2SAT 100
--- NOTE | 2023-09-19 11:25 | ED.SKABFB ---
HPI - Skin/Abscess/Foreign Bdy General Chief complaint: Skin/Abscess/Foreign Body Stated complaint: left forearm bump Time Seen by Provider: 09/19/23 11:26 Source: patient, RN notes reviewed and old records reviewed Mode of arrival: ambulatory Limitations: no limitations History of Present Illness HPI narrative: 28-year-old female presents to [facility] with of bump to her left forearm which is red raised with a white center for the past 2 days. Patient reports that she has had this little raised area to her forearm for about 4 years with no redness swelling or tenderness.Patient states that for the past 2 day she has had some surrounding redness to site with swelling of bump with white center noted with no fluctuation of tissue noted. Patient states that redness is decreased today, denies any fevers ,chills, no sweats. MD complaint: abscess/boil Onset (ago): day(s) (2) Location: LLE (distal forearm) Severity scale (1-10): 8 Quality: other (throbbing) Treatments prior to arrival: other (Tylenol, squeezed area with no drainage.) Related Data Home Medications Medication Instructions Recorded Confirmed medroxyprogesterone 150 mg/mL See Rx Instructions .Route .COMPLEX 09/19/23 09/19/23 intramuscular suspension Allergies Allergy/AdvReac Type Severity Reaction Status Date / Time No Known Allergies Allergy Verified 09/19/23 10:51 Review of Systems Review of Systems: CONSTITUTIONAL: Denies fever, chills, or sweats. CARDIOVASCULAR: Denies chest pain, palpitations, or edema. RESPIRATORY: Denies cough or dyspnea. GASTROINTESTINAL: Denies abdominal pain, nausea, vomiting SKIN: Reports redness and swelling. Denies purulent drainage, positive for tenderness and redness around raised firm pustule left distal forearm MUSCULOSKELETAL: Denies myalgia. NEUROLOGIC: Denies headache, numbness All systems reviewed & are unremarkable except as noted in HPI and below PMFSH Past Medical History Medical History No pertinent past medical history Family History Family History Other No pertinent family history Social History Social History Smoking packs per day: 0.5 Smoking cigarettes per day: 10.0 Years smoked: 12 Smoking pack-years: 6.00 Smoking status: Current every day smoker Tobacco type: cigarettes Second hand tobacco smoke exposure: Yes Substance use: current Last use: 10/07/22 Lack of Transportation: No Lack of Food: Never True Current Housing: I Have Housing Concerned About Future Housing: No Difficulty Paying Gas/Electric Bills: No Difficulty Paying for Meds: No Currently Unemployed: No Education: High School Diploma/GED Difficulty w/ Childcare or Family Care: No Spiritual care concerns: No Comments At time of signature, agree with nursing past medical, surgical, social and family history. There is no relevant family history pertinent to the presenting complaint Exam Narrative: GENERAL: Well-appearing, well-nourished, and in no acute distress. HEAD: Normocephalic, atraumatic. EYES: PERRLA and EOMI. ENT: Nares clear, no rhinorrhea or epistaxis. Mucous membranes moist. NECK: Supple. no lymphadenopathy CHEST: Clear to auscultation. No respiratory distress. HEART: Regular rate and rhythm. No murmur heard. Normal peripheral pulses ABDOMEN: Soft, nontender, nondistended, normal active bowel sounds. EXTREMITIES: Normal range of motion. No edema. SKIN: Warm, dry. Erythema, induration, tenderness, warmth with area of redness 7cm X 9 cm with firm hard pustule 0.5cm diameter with whitish center, no fluctuation of tissue noted is painful. NEURO: No focal deficits. Alert and oriented x3. Course Course Emergency Course: Patient is aware of diagnosis, understands and agrees to treatment plan. Isaura vyas
== END 2023-09-19 11:35 | disposition home or self-care (01) ==
PROVIDERS: Emergency Provider Registered Nurse
DX: L02.414 Cutaneous abscess of left upper limb (principal); F17.210 Nicotine dependence, cigarettes, uncomplicated
CPT/HCPCS: 99213; G0463

== ENCOUNTER 2023-09-21 12:25 | Emergency (ER) | payer OTHER, SELFPAY ==
[2023-09-21 12:26] VITALS: BP 115/64; PULSE 66; RESP 13; TEMP 36.2; O2SAT 100
--- NOTE | 2023-09-21 14:42 | ED.SKABFB ---
HPI - Skin/Abscess/Foreign Bdy General Chief complaint: Skin/Abscess/Foreign Body Stated complaint: bump on arm (on antibiotics) Time Seen by Provider: 09/21/23 14:28 History of Present Illness HPI narrative: This is a 28-year-old female, with no significant past medical history, presents to the emergency department with painful swelling mass of the left forearm. Patient states she has had a cyst on the left forearm for the past several years, though in the past week it has become more painful red and swollen. She states she was seen at an urgent care approximately 1 week ago, started on oral antibiotics but the mass grew. Related Data Home Medications Medication Instructions Recorded Confirmed medroxyprogesterone 150 mg/mL See Rx Instructions .Route .COMPLEX 09/19/23 09/19/23 intramuscular suspension Allergies Allergy/AdvReac Type Severity Reaction Status Date / Time No Known Allergies Allergy Verified 09/21/23 14:28 Review of Systems Review of Systems: CONSTITUTIONAL: Denies fever, chills, or sweats. CARDIOVASCULAR: Denies chest pain, palpitations, or edema. RESPIRATORY: Denies cough or dyspnea. GASTROINTESTINAL: Denies abdominal pain, nausea, vomiting, or diarrhea. SKIN: Painful swelling mass of the left forearm denies rash or itching. MUSCULOSKELETAL: Denies back pain, joint pain, or myalgia. NEUROLOGIC: Denies headache, numbness, dizziness, or weakness. PSYCHIATRIC: Denies anxiety or depression. [facility] Past Medical History Medical History No pertinent past medical history Family History Family History Other No pertinent family history Social History Social History Smoking packs per day: 0.5 Smoking cigarettes per day: 10.0 Years smoked: 12 Smoking pack-years: 6.00 Smoking status: Current every day smoker Tobacco type: cigarettes Second hand tobacco smoke exposure: Yes Substance use: current Last use: 10/07/22 Lack of Transportation: No Lack of Food: Never True Current Housing: I Have Housing Concerned About Future Housing: No Difficulty Paying Gas/Electric Bills: No Difficulty Paying for Meds: No Currently Unemployed: No Education: High School Diploma/GED Difficulty w/ Childcare or Family Care: No Spiritual care concerns: No Exam Narrative: GENERAL: Well-developed, well-nourished, and in no acute distress. HEAD: Normocephalic, atraumatic. EYES: PERRLA and EOMI. CHEST: Clear to auscultation. No respiratory distress. No wheezes rales or rhonchi HEART: Regular rate and rhythm. No murmur heard. Normal peripheral pulses. ABDOMEN: Soft, nontender, nondistended, normal active bowel sounds. EXTREMITIES: Normal range of motion. No edema. SKIN: A 7 cm diameter erythematous, indurated lesion is noted over the posterior aspect of the left forearm, consistent with abscess. There is drainage of purulent fluid without active bleeding. Skin is otherwise warm, dry, no rash. NEURO: Alert and oriented x3. Moving all 4 limbs purposefully. PSYCH: Normal mood and affect. Course Course Emergency Course: 15:14 - After administering 4 mL of lidocaine with epinephrine and while waiting for medication effect the patient applied pressure to her abscess, and was successful in draining the lesion. No incision was made. I estimate an approximate 4 mL of purulent/bloody drainage was removed. There is a small amount of ecchymosis over the lesion without other changes concerning for neurovascular compromise of the heart. Will discharge with recommendation for sitz bath, continuation of antibiotics and follow-up with her primary care doctor. Discussed return and emergency precautions including signs/symptoms of neurovascular compromise and septic arthritis. The patient voiced understanding and is comfortable w
== END 2023-09-21 15:33 | disposition home or self-care (01) ==
PROVIDERS: Emergency Provider Preventive Medicine Aerospace Medicine
DX: L02.414 Cutaneous abscess of left upper limb (principal); F17.210 Nicotine dependence, cigarettes, uncomplicated
CPT/HCPCS: 99282

== ENCOUNTER 2024-06-02 14:41 | Emergency (ER) | payer OTHER, SELFPAY ==
[2024-06-02 14:47] VITALS: BP 115/53; PULSE 69; RESP 20; TEMP 36.9; O2SAT 100
--- NOTE | 2024-06-02 15:29 | ED.URI ---
HPI - URI/Sore Throat General Chief Complaint: Upper Respiratory Infection Stated Complaint: needs covid test Time Seen by Provider: 06/02/24 15:15 Source: patient, RN notes reviewed and old records reviewed Mode of arrival: ambulatory Limitations: no limitations History of Present Illness HPI Narrative: 29 year old female who presets to express care presents to express care with complaints of body aches, sore throat, cough and chills with headache starting last night. 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 Patient reports that they have had patient's with COVID at the facility.Patient reports that she has felt feverish and has been taking Ibuprofen for her symptoms. MD elicited complaint: cough, sore throat and other (body aches, and headaches) Onset (ago): day(s) (since last night) Pain scale (0-10): 5 Treatments prior to arrival: ibuprofen Related Data Home Medications Medication Instructions Recorded Confirmed medroxyprogesterone 150 mg/mL See Rx Instructions .Route .COMPLEX 09/19/23 09/19/23 intramuscular suspension Allergies Allergy/AdvReac Type Severity Reaction Status Date / Time No Known Allergies Allergy Verified 09/21/23 14:28 Review of Systems Review of Systems: CONSTITUTIONAL: Reports malaise, chills, sweats, or fever. EYES: Denies visual changes, redness, or discharge. ENT: Reports rhinorrhea, congestion, sinus pain, no otalgia and positive for sore throat. CARDIOVASCULAR: Denies chest pain, palpitations, or edema. RESPIRATORY: Reports cough.? Denies dyspnea. GASTROINTESTINAL: Denies abdominal pain, nausea, vomiting, diarrhea SKIN: Denies rash or itching. MUSCULOSKELETAL:reports myalgia. NEUROLOGIC: reports headache. All systems reviewed & are unremarkable except as noted in HPI and below PMFSH Past Medical History Medical History (Updated 06/04/24 @ 15:04 by Hawa Edmond NP) Ear infection No pertinent past medical history UTI (urinary tract infection) Surgical History Surgical History (Updated 06/04/24 @ 15:03 by Hawa Edmond NP) [place] teeth extracted Family History Family History Other No pertinent family history Social History Social History Smoking packs per day: 0.5 Smoking cigarettes per day: 10.0 Years smoked: 12 Smoking pack-years: 6.00 Smoking status: Current every day smoker Tobacco type: cigarettes Second hand tobacco smoke exposure: Yes Substance use: current Last use: 10/07/22 Lack of Transportation: No Lack of Food: Never True Current Housing: I Have Housing Concerned About Future Housing: No Difficulty Paying Gas/Electric Bills: No Difficulty Paying for Meds: No Currently Unemployed: No Education: High School Diploma/GED Difficulty w/ Childcare or Family Care: No Spiritual care concerns: No Comments At time of signature, agree with nursing past medical, surgical, social and family history. There is no relevant family history pertinent to the presenting complaint Exam Narrative: GENERAL: Well-appearing, well-nourished, and in no acute distress. HEAD: Normocephalic EYES: PERRLA, conjunctivae clear ENT: Nares clear, turbinates edematous and erythematous, clear discharge. Mucous membranes moist. TM pearly soler with dull light reflex bilaterally; no tragal tenderness. Oropharynx erythematous without lesions. Tonsils not enlarged and without exudate, no drooling, no hoarseness, no trismus, uvula midline. NECK: Supple. No lymphadenopathy CHEST: Clear to auscultation, breath sounds equal. No wheezing, rhonchi, rales, or stridor. No respiratory distress, speaks in full sentences.dry cough noted SAO2 100% on room air HEART: Regular rate and rhythm. No murmur heard. SKIN: Warm, dry, no rash. NEURO: Alert an
[2024-06-02 15:54] LABS: EDINFLUASCREEN Negative; EDINFLUBSCREEN Negative; EDSTREPNEGPOS1 Presumptive Negative
== END 2024-06-02 15:45 | disposition home or self-care (01) ==
PROVIDERS: Emergency Provider Registered Nurse
DX: B34.9 Viral infection, unspecified (principal); Z20.822 Contact with and (suspected) exposure to COVID-19; F17.210 Nicotine dependence, cigarettes, uncomplicated
CPT/HCPCS: 87081; 87426; 87804; 87880; 99213; G0463

== ENCOUNTER 2024-08-12 16:15 | Emergency (ER) | payer OTHER, SELFPAY ==
--- NOTE | ~2024-08-12 | XR_ITS ---
EXAMINATION: XR toe 1st LT min 2V DATE: 08/12/2024 16:44 INDICATION: Left great toe injury and pain. TECHNIQUE: 4 views of left great toe were obtained. COMPARISON: None. FINDINGS: There is mild hallux valgus. No fracture. 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 IMPRESSION: 1. No fracture. Reviewed, dictated and finalized at location A. IMPRESSION: 1. No fracture.
[2024-08-12 16:20] VITALS: BP 126/75; PULSE 62; RESP 16; TEMP 36.3; O2SAT 100
[2024-08-12 16:27] VITALS: BP 126/75; PULSE 62; RESP 16; TEMP 36.3; O2SAT 100
--- NOTE | 2024-08-12 16:30 | ED.LOWEXIN ---
HPI - Extremity Injury (Lower) General Chief Complaint: Extremity Injury, Lower Stated Complaint: Toe Injury Time Seen by Provider: 08/12/24 16:26 Source: patient and RN notes reviewed Mode of arrival: ambulatory Limitations: no limitations History of Present Illness HPI Narrative: Patient presents today with an injury to her left great toe. This morning around 11:00 a.m. she opened the door and it opened, swinging up on top of her toe, pulling at her toenail. Currently rates her pain 7/10 and reports the tip of the toes numb. She did have some bleeding from underneath the toenail for period of time, but this has since resolved, which she does have some clear fluid draining from underneath the nail. Related Data Home Medications Medication Instructions Recorded Confirmed drospirenone (contraceptive) 4 mg 1 tablet DIRECTED 08/12/24 08/12/24 (28) tablet (Slynd) Allergies Allergy/AdvReac Type Severity Reaction Status Date / Time No Known Allergies Allergy Verified 09/21/23 14:28 Review of Systems Review of Systems: CONSTITUTIONAL: Denies body aches, fever, chills, or sweats. EYES: Denies visual changes, redness, or discharge. ENT: Denies rhinorrhea, congestion, sore throat, or otalgia. CARDIOVASCULAR: Denies chest pain, palpitations, or edema. RESPIRATORY: Denies cough or dyspnea. GASTROINTESTINAL: Denies abdominal pain, nausea, vomiting, or diarrhea. GENITOURINARY: Denies dysuria or hematuria. SKIN: Denies rash, itching, or wounds. MUSCULOSKELETAL: Denies back pain, or myalgia.+ left great toe injury NEUROLOGIC: Denies headache, numbness, tingling, or weakness. PSYCH: Denies depression or anxiety. [facility] Past Medical History Medical History Ear infection No pertinent past medical history UTI (urinary tract infection) Surgical History Surgical History [place] teeth extracted Family History Family History Other No pertinent family history Social History Social History Smoking packs per day: 0.5 Smoking cigarettes per day: 10.0 Years smoked: 12 Smoking pack-years: 6.00 Smoking status: Current every day smoker Tobacco type: cigarettes Second hand tobacco smoke exposure: Yes Substance use: current Last use: 10/07/22 Lack of Transportation: No Lack of Food: Never True Current Housing: I Have Housing Concerned About Future Housing: No Difficulty Paying Gas/Electric Bills: No Difficulty Paying for Meds: No Currently Unemployed: No Education: High School Diploma/GED Difficulty w/ Childcare or Family Care: No Spiritual care concerns: No Comments At time of signature, I have reviewed and agree with nursing past medical, surgical, social and family history unless otherwise noted. Please see nursing chart for further information. There is no relevant family history pertinent to the presenting complaint Exam Narrative: GENERAL: Well-appearing, well-nourished, and in no acute distress. HEAD: Normocephalic, atraumatic. EYES: EOMI. No redness or drainage. Conjunctivae normal. ENT: Mucous membranes pink and moist. NECK: Normal AROM. CHEST: No respiratory distress. EXTREMITIES: Left great toe: Scant surrounding ecchymosis and edema to the distal phalanx of the toe. The toenail appears normal with some clear fluid draining from the distal nail bed. Distal sensation intact. Capillary refill. Decreased range of motion of the toe due to pain. SKIN: Warm, dry, no rash. Capillary refill normal. Normal skin turgor. NEURO: No focal deficits. Alert and oriented x3. Gait steady. PSYCH: Normal affect. No signs of depression or anxiety. Course Course Level of Care: Express Care Visit Vital Signs Vital signs:
== END 2024-08-12 17:10 | disposition home or self-care (01) ==
PROVIDERS: Emergency Provider Nurse Practitioner
DX: S90.212A Contusion of left great toe with damage to nail, initial encounter (principal); W20.8XXA Other cause of strike by thrown, projected or falling object, initial encounter; Z87.891 Personal history of nicotine dependence
CPT/HCPCS: 73660; 99213; G0463

== ENCOUNTER 2025-09-06 11:02 | Outpatient (CLI) | payer OTHER, SELFPAY ==
--- NOTE | ~2025-09-06 | MMUS_ITS ---
EXAMINATION: MM diagnostic amira BI w sunshine, US breast RT limited HISTORY: Palpable abnormality in the right breast. TECHNIQUE: Additional 3-D tomosynthesis images of both breasts were performed and synthetic 2-D images were generated. CAD analysis was submitted and interpreted. High resolution right breast ultrasound was performed. COMPARISON: None available BREAST PARENCHYMAL COMPOSITION: The breasts are heterogeneously dense, which may obscure small masses. FINDINGS: MAMMOGRAPHIC FINDINGS: There is a 1.7 cm mass in the upper outer quadrant of the right breast, anterior to middle depth, with a few coarse heterogeneous calcifications and adjacent nipple retraction. The finding corresponds with a 1.7 cm heterogeneous mass by sonography. The finding is suspicious. ULTRASOUND: There is a 1.7 x 1.5 x 1.6 cm heterogeneous mass in the right breast at the 10:00 position 1 cm from the nipple. There is a mammographic correlate. There is internal color Doppler flow. There is posterior acoustic shadowing. Margins are indistinct. The finding is suspicious. IMPRESSION: 1. There is a 1.7 cm mass in the right breast at the 10:00 position, 1 cm from the nipple. The finding is suspicious. An ultrasound-guided breast biopsy is recommended. 2. No evidence of malignancy in the left breast. BI-RADS 4-Suspicious finding. Protocol insures that results of the study are called and/or faxed to the referring clinician's office and documented in the patient's chart per critical findings protocol. Reviewed, dictated and finalized at location Q. IMPRESSION: 1. There is a 1.7 cm mass in the right breast at the 10:00 position, 1 cm from the nipple. The finding is suspicious. An ultrasound-guided breast biopsy is re commended. 2. No evidence of malignancy in the left breast. BI-RADS 4-Suspicious finding. Protocol insures that results of the study are called and/or faxed to the refer ring clinician's office and documented in the patient's chart per critical find ings protocol.
== END 2025-09-06 11:03 | disposition home or self-care (01) ==
LOC: ANHFOHIMG 11:04
PROVIDERS: PCP Nurse Practitioner; Visit Provider Nurse Practitioner
DX: N63.11 Unspecified lump in the right breast, upper outer quadrant (principal)
CPT/HCPCS: 76642; 77062; 77066; G0279

== ENCOUNTER 2025-09-22 07:00 | Outpatient (CLI) | payer OTHER, SELFPAY ==
--- NOTE | ~2025-09-22 | MMUS_ITS ---
MM post biopsy diagnostic RT, US breast biopsy RT w image EXAMINATION: US GUIDED NEEDLE BIOPSY WITH VACUUM ASSISTANCE DATE: 09/22/2025 10:44 CDT INDICATION: Right breast mass Ultrasound-guided core biopsy is requested to evaluate for malignancy. BREAST PARENCHYMAL COMPOSITION: Dense: The breasts are heterogeneously dense, which may obscure small masses TECHNIQUE AND FINDINGS: The risks and potential benefits of the procedure were discussed with the patient, and written informed consent was obtained. After sterile preparation of the right breast, 1% lidocaine was utilized for local anesthesia. 1% lidocaine with epinephrine was used for deep anesthesia. A 10G vacuum-assisted biopsy gun needle was advanced through to the outer edge of the region of interest from a lateral approach utilizing sonographic guidance. A total of 4 tissue core samples were obtained through the lesion. An Inrad tissue marker clip was then placed at the biopsy site. Hemostasis was achieved. The patient tolerated procedure well and there was no evidence of immediate complication. The patient was given verbal instructions partly is from the department. Right breast mammograms to document tissue marker clip placement. The tissue samples were submitted to surgical pathology for histologic analysis. IMPRESSION: 1. Successful ultrasound-guided vacuum-assisted biopsy of right breast mass with post procedure mammogram for marker placement. Please refer to pathology report for histologic analysis. Reviewed, dictated and finalized at location B. IMPRESSION: 1. Successful ultrasound-guided vacuum-assisted biopsy of right breast mass wi th post procedure mammogram for marker placement. Please refer to pathology rep ort for histologic analysis.
--- NOTE | 2025-09-22 10:35 | S_PTH ---
PATIENT: Nirmala Hidalgo LOC: [facility] U#:[id number] AGE/SX: 30/F ROOM: RE09/22/[address]: Amy Nogueira MD : 1995 BED: DIS: 09/22/2025 SPEC #: [id number] RECD: 09/22/25 14:02 STATUS: ANMOL REFarida #: [id number] ANNALISE: 09/22/25 10:[address]: Amy Nogueira DEPT: [facility] Surgical RECD BY: Lucía Grimm ENTERED: 09/22/25 14:02 SP TYPE: Surgical OTHR DR: UNKNOWN,DOCTOR Tissues: A - Breast Biopsy Procedures: Hematoxylin and Eosin Stain Gross and Microscopic Level 4 ER-60 IA-60 MIB-60 HER 2-60
== END 2025-09-22 07:01 | disposition home or self-care (01) ==
PROVIDERS: Visit Provider Surgery
DX: C50.411 Malignant neoplasm of upper-outer quadrant of right female breast (principal)
CPT/HCPCS: 19083; 77065; 88305; 88342; 88360; A4648

== ENCOUNTER 2025-10-04 14:35 | Outpatient (CLI) | payer OTHER, SELFPAY ==
--- NOTE | ~2025-10-04 | MR_ITS ---
MR breast BI wo/w con 10/05/2025 08:01 DAIRY HUSBANDRY WORKER INDICATION: Malignant neoplasm of the right breast. TECHNIQUE: MRI of the breasts perform using standard protocol pre-and post IV contrast with the following sequences: Axial T2 STIR, axial T1, axial vibrant T1 with fat suppression precontrast and multiphasic postcontrast. 13 cc MultiHance administered intravenously. COMPARISON: Comparison to multiple prior studies sequentially, with oldest reviewed study dated 09/06/2025. FINDINGS: On precontrast sequences, there are is an irregular shaped mass in the upper outer quadrant of the right breast, anterior third characterized is hypointense on T1 and hyperintense on T2 with rapid washout enhancement. This mass measures approximately 2.3 x 1.5 x 1.9 cm with heterogeneous enhancement. There is soft tissue extending anteriorly to the mass which is hypointense on T1 with skin thickening surrounding the areola. This corresponds to the known biopsy-proven malignancy. There is a small satellite nodule in the upper outer quadrant of the right breast, middle third at approximately 10:00 measuring 1.3 x 0.8 x 0.7 cm with rapid washout enhancement, likely malignancy. There is mild background parenchymal enhancement. No evidence of signal abnormalities in the axillary or internal mammary node distributions. LEFT BREAST: No signal abnormalities on precontrast sequences. There is mild background parenchymal enhancement. No enhancing lesions following contrast administration. No areas of enhancement meeting threshold criteria on CAD analysis. No evidence of signal abnormalities in the axillary or internal mammary node distributions.] IMPRESSION: 1: Right breast: Dominant 2.3 cm mass upper outer quadrant of the right breast, anterior third at approximately 9:00 measuring up to 2.3 cm. This corresponds to the patient's known malignancy. Small satellite nodule present also in the upper outer quadrant measuring up to 1.3 cm with suspicious enhancement, also likely malignant. BI-RADS category 6- Known biopsy proven malignancy: Appropriate action should be taken. 2: Left breast: Negative. No evidence of malignancy. BI-RADS category 1. Recommend annual mammography follow-up. Reviewed, dictated and finalized at location B. Y HUSBANDRY WORKER IMPRESSION: 1: Right breast: Dominant 2.3 cm mass upper outer quadrant of the right breast , anterior third at approximately 9:00 measuring up to 2.3 cm. This corresponds to the patient's known malignancy. Small satellite nodule present also in the upper outer quadrant measuring up to 1.3 cm with suspicious enhancement, also l ikely malignant. BI-RADS category 6- Known biopsy proven malignancy: Appropriat e action should be taken. 2: Left breast: Negative. No evidence of malignancy. BI-RADS category 1. Re commend annual mammography follow-up.
--- OUTSIDE RECORDS SUMMARY | 2025-10-04 14:41 | XMS_ITS ---
Author Organization [facility] Address [address] [place] [address] Phone Care Team Providers Care Construction Electrician Name Role Phone LEONARD BOWERS DO [phone] Problems Includes: Active, inactive, and resolved Problems No Active Problems Plan of Treatment Findings Encounter Date Ordered return to the clinic if condition worsens or new symptoms arise COVID SICK VISIT- ESTABLISHED PATIENT with JOCELINE ROSARIO [facility] 12/09/2021 Last Documented On 2 10:46AM ; [facility] Ordered follow-up visit in 1 -2 weeks with an office visit or sooner if symptoms persist or worsen COVID SICK VISIT- NEW PATIENT with LUIS FERNANDO Rg [facility]- 11/29/2021 Last Documented On 2 5:02PM ; [facility] Ordered patient to call if hemanth jimenez develops COVID SICK VISIT- NEW PATIENT with LUIS FERNANDO [facility]- 11/29/2021 Last Documented On 2 5:02PM ; [facility] Ordered return to the clinic if condition worsens or new symptoms arise COVID SICK VISIT- NEW PATIENT with LUIS FERNANDODOUGLAS [facility]- 11/29/2021 Last Documented On 2 5:02PM ; [facility] Instructions to patient Go to the emergency room if condition worsens Last Documented On 2 4:48PM ; [facility] Watch for signs/symptoms of infection Last Documented On 2 4:48PM ; [facility] Watch for signs/symptoms of infection, return to the clinic if seen Last Documented On 2 4:48PM ; [facility] Education and Decision Aids were provided during visit for: Patient education about anti biotics: need to finish even if feeling better Last Documented On 2 4:48PM ; [facility] Assessments Includes: Assessments for all patient encounters Findings Encounter Date Acute otitis media of both ears COVID SI CK VISIT- ESTABLISHED PATIENT with JOCELINE FLETCHER 12/09/2021 Last Documented On 2 10:46AM ; [facility] Acute sinusitis COVID SICK VISIT- NEW PATIENT [facility] LUIS FERNANDO [facility]- 11/29/2021 Last Documented On 2 5:02PM ; [facility] Instructions Includes: Instructions for all patient encounters Instructions to patient Go to the emergency room if condition worsens Last Documented On 2 4:48PM ; [facility] Watch for signs/symptoms of infection Last Documented On 2 4:48PM ; [facility] Watch for signs/symptoms of infection, return to the clinic if seen Last Documented On 2 4:48PM ; [facility] Education and Decision Aids were provided during visit for: Patient education about anti biotics: need to finish even if feeling better Last Documented On 2 4:48PM ; [facility] Medical Equipment - Implanted Devices Includes: Current and historical Devices No Medical Equipment Recorded Medications Includes: Current and historical Medications Current Medications (continue as prescribed) Zithromax Z-Jose 250 MG Oral Tablet 11/29/2021 Provider: LUIS FERNANDO [facility]- Diagnosis: Acute maxillary sinusitis, unspecified as directed Last Documented On 2 5:08PM By LUIS FERNANDO [facility]- ; [facility] Past Medications on file Amoxicillin-Pot Clavulanate 875-125 MG Oral Tablet 12/09/2021 - 12/19/2021 Provider: JOCELINE PEACOCKP Diagnosis: Otitis media, unspecified, bilateral One tablet twice a day Last Documented On 12/09/2021 10:31AM By JOCELINE ROSARIO [employer] ; [facility] Medications Administered Includes: Administered Medications in patient's chart No Administered Medications Recorded Results Includes: Results from 10/04/2024 through 10/04/2025 No Results Recorded For Specified Dates History of Present Illness History of Present Illness not supported for this document type No History of Present Illness Recorded Social History Description Last Updated Current smoker 12/09/2021 Last Documented On 2 10:46AM ; [facility] Smoking Status Unknown Medical History Includes: Medical History in patient's chart Description Last Updated Contact with and (Suspected) exposure to COVID-19 12/09/2021 Last Documented On 2 10:46AM ; [facility] Date COVID symptoms started: 11/18/2021 12/09/2021 Last Documented On 2 10:46AM ; [facility] No fall 12/09/2021 Last Documented On 2 10:46AM ; [facility] Family History Includes: Family History in patient's chart No Family History Recorded Review of Systems Review of Systems not supported for this document type No Review of Systems Recorded Mental Status Description Oriented to time, place, and person Functional Status No Functional Status Recorded Physical Exam Physical Exam not supported for this document type No Physical Exam Recorded Allergies Includes: Active, inactive, and resolved Allergies No Known Allergies Insurance Includes: Active Insurance Policies Plan Name Member ID Group # Subscriber Relationship Effect kaitlynn Dates 1 - [facility] [id number] BEAU Vizcarra Clinical Notes Includes: Signed Clinical Notes starting from 12/13/2022 No Clinical Notes Recorded
--- OUTSIDE RECORDS SUMMARY | 2025-10-04 14:41 | XMS_ITS | Clinical Summary ---
Author Organization [facility] Address [address] [place] [address] Phone Care Team Providers Care Sailmaker Name Role Phone Provider, None Primary Care Provider Unavailabl e Allergies No known active allergies Medications traMADol (ULTRAM) 50 MG Tablet Take 1-2 Tabs by mouth every 6 hours as needed for Pain. 20 Tab 0 01/31/2017 Active Social History Tobacco Use Types Packs/Day Years Used Date Smoking Tobacco: Every Day Cigarettes Alcohol Use Standard Drinks/Week Comments No 0 (1 standard drink = 0.6 oz pur e alcohol) Comments Unknown Sex and Gender Information Value Date Recorded Sex Assigned at Not on file Legal Sex Female 10:55 PM CDT Gender Identity Not on file Sexual Orientation Not on file Last Filed Vital Signs Vital Sign Reading Time Taken Comments Blood Pressure 115/57 01/31/2017 11:14 AM PEN OR PENCIL ASSEMBLY MACHINE OPERATOR Pulse 66 01/31/2017 11:14 AM PEN OR PENCIL ASSEMBLY MACHINE OPERATOR Temperature 36.2 C (97.2 F) 01/31/2017 11:14 AM PEN OR PENCIL ASSEMBLY MACHINE OPERATOR Respiratory Rate 19 01/31/2017 11:14 AM PEN OR PENCIL ASSEMBLY MACHINE OPERATOR Oxygen Saturation 100% 01/31/2017 11:14 AM PEN OR PENCIL ASSEMBLY MACHINE OPERATOR Inhaled Oxygen Concentration - - Weight 65.8 kg (145 lb) 01/31/2017 11:14 AM PEN OR PENCIL ASSEMBLY MACHINE OPERATOR Height 154.9 cm (5' 1) 01/31/2017 11:14 AM PEN OR PENCIL ASSEMBLY MACHINE OPERATOR Body Mass Index 27.4 01/31/2017 11:14 AM PEN OR PENCIL ASSEMBLY MACHINE OPERATOR Plan of Treatment Health Maintenance Due Date Last Done Comments Hepatitis C Virus (HCV) Screening 1995 TdaP Immunization 1995 Hepatitis B Immunization (1 of 3 - 19+ 3-dose series) 02/03/2012 Pap Smear 2014 Human Papillomavirus (HPV) Immunization (1 - 3-dose SCDM series) 02/03/2020 Cervical Cancer Screening (CCS) 2023 HPV/Cotest 2023 Influenza Immunization (#1) 2025 SARS-COV-2 Immunization ( season) 2025 Respiratory Syncytial Virus (RSV) Immunization (Adult) (1 - 1-dose 75+ series) 02/03/2068 Meningococcal Immunization (ACWY) Aged Out No longer eligible based on patient's age to complete this topic Pneumococcal Immunization Combined Aged Out No longer eligible based on patient's age to complete this topic Rotavirus Immunization Aged Out No lo nger eligible based on patient's age to complete this topic Insurance MEDICAID [place] Care Teams Sailmaker Relationship Specialty Start Date End Date Provider, None [place] PCP - General 01/31/17
--- OUTSIDE RECORDS SUMMARY | 2025-10-04 14:41 | XMS_ITS ---
Care Plan - [facility] Created on: October 04, 2025 BEAU RUIZ : 1995 Sex: Female Author Organization [facility] Address [address] [place] [address] Phone Care Team Providers Care Patrol Agent Name Role Phone LEONARD BOWERS DO [phone]
--- OUTSIDE RECORDS SUMMARY | 2025-10-04 14:41 | XMS_ITS | Clinical Summary ---
Author Organization [facility] Padmini powell Maya Address [address] [place] [address] Care Team Providers Care Stripping Shovel Operator Name Role Phone Unavailable Primary Care Provider Unavailabl e Social History Tobacco Use Types Packs/Day Years Used Date Smoking Tobacco: Never Assessed Comments Unknown Sex and Gender Information Value Date Recorded Sex Assigned at Not on file Legal Sex Female 11:09 AM RUSSIAN LANGUAGE INSTRUCTOR Gender Identity Not on file Sexual Orientation Not on file Plan of Treatment Upcoming Encounters Date Type Department Care Team (Late st Contact Info) Description 10/13/2025 11:00 AM RUSSIAN LANGUAGE INSTRUCTOR Office Visit [facility] Oncology and Hematology - Prabhjot [phone] [place] [address] Suri Pittman MD [address] [place] [address] Health Maintenance Due Date Last Done Comments DTAP/TDAP/TD VACCINES (1 - Tdap) 02/03/2012 HEPATITIS B VACCINES (1 of 3 - 19+ 3-dose series) 01/22 HPV/Cotest (21-29) 2014 HPV VACCINES (1 - 3-dose SCDM series) 02/03/2020 CERVICAL CANCER SCREENING 2023 HPV/Cotest (30-65) 2023 PAP SMEAR 2023 INFLUENZA VACCINE (#1) 2025
--- OUTSIDE RECORDS SUMMARY | 2025-10-04 14:41 | XMS_ITS | Data Portability ---
Author Organization [facility] Address [address] [address] [place] [address] Assessment Encounter Date Assessment Date Assessment LastModified by Organization Details LastModified Time 08/04/2025 08/04/2025 Annual gynecological exam performed. Patient will come back in a year unless there are new symptoms. [email or web address] Not available 08/04/2025 10:40:59 Plan of Treatment Reminders Order Date Submit Date Provider Last Modified By Organization Details Last Modified Time Details Appointments None recorded. Lab pap, IG + HR HPV - HPV regardless but if HPV is positive need subtyping 16,18/45 add sti to pap gc/ct/trich 2024 025 [facility] (Lab), [address], [place], [address], 23:43:41 Referral None recorded. Procedures None recorded. Surgeries None recorded. Imaging MAMMO, diagnostic, digital, bilateral 2024 025 [facility], [address], [address], [place], [address], 09:05:52 US, breast, unilateral - Bilateral dense breast, right breast lump around 10- oclock 2024 025 [facility], [address], [address], [place], [address], 5 04:00:55 Medication Orders Slynd 4 mg (28) tablet 2024 025 [id number], [address] [place], [address], 5 11:00:27 Slynd 4 mg (28) tablet 2023 024 [facility][id number], [address] [place], [address], 4 12:09:50 [employer] Consultant a 150 mg/mL intramuscul ar suspension 2022 023 [email or web address] Not available 4 12:09:32 [employer] Consultant a 150 mg/mL intramuscul ar suspension 2022 023 [email or web address] Not available 4 12:09:32 [employer] Consultant a 150 mg/mL intramuscul ar suspension 2022 023 [email or web address] Not available 4 12:09:32 Patient TargetsNo targets recorded. Patient InstructionsNo instructions recorded. Reason for Referral None Reported. Results Created Date Observation Date Name Description Value Unit Range Abnormal Flag Note LastModifiedBy Organization Detail LastModifiedTime 08/04/20 25 08/04/2025 IMAGE GUIDE D PAP AND HPV REGAR DLESS image guided Pap, HPV regardless of Pap result SEE RESULT S BELOW CASE REPOR T: Cytol ogy Gynec ologi darryn Repor t Case: [id number] Autho romelia retana Provi nevaeh: Tierra Montiel, ASAF Colle cted: 08/04 1318 Order ing Locat ion: [place] Patho log[facility] Recei kizzy: 08/05 0829 First Scree n: Noora ni, Moham ed, CT Speci men: Scree owen Pap - Image d, Cervi x STATE MENT OF ADEQU ACY: Satis facto ry for evalu ation Trans forma tion zone compo nent absen t ----- ----- ----- ----- ----- ----- ----- ----- ----- ----- ----- ----- ----- ----- ----- ----- ----- ---- FINAL DIAGN OSIS: Negat kaitlynn for Intra epith elial Lesio n or Jb coates (NIL) . Elect kiersten ruggiero d by Kai Clayton ed, CT on 2024 at 2239 CDT ----- ----- ----- ----- ----- ----- ----- ----- ----- ----- ----- ----- ----- ----- ----- ----- ----- ---- HPV RESUL TS: HPV mRNA E6/E7 : No HPV mRNA Detec harris NOTE: This high risk HPV mRNA assay detec ts fourt een high- risk HPV types (16, 18, 31, 33, 35, 39, 45, 51, 52, 56, 58, 59, 66, 68) witho ut diffe renti ation . COMME NT: This speci men was revie wed by a Cytot echno logis t and/o r Patho logis t (as indic ated in this repor t) after evalu ation using the Thinp rep Imagi ng Syste m. CLINI DARRYN INFOR MATIO N: Menst rual Statu s: LMP (if appli cable ): Clini darryn Histo ry/Pr eviou s Pap: Type of Neopl smooth (if appli cable ): Signi fican t Clini darryn Findi ngs: Other Histo ry: Hormo ry (if appli cable ): PAP EDUCA AMANDO L NOTE: The Pap Test is a scree owen test with an inher ent false negat kaitlynn rate. Liqui d-bas ed sampl ing may decre ase, but will not elimi joselin, false negat kaitlynn resul ts. A negat kaitlynn resul t does not precl ude the prese nce and/o r devel opmen t of disea se, since the prese nce of abnor mal cells in the sampl e depen ds on the locat ion of the lesio n and sampl ing techn ique. Ander nued regul ar scree owen is the best metho d of cance r preve ntion . If repor harris cytol ogic findi ng do not corre late with physi darryn and/o r histo rical findi ngs, furth er inves tigat ion is recom radha d, as clini dee wetzel nted. Not Available [facility] (Lab) [address], [place], [address], 08/08/2025 23:43:41 08/04/20 25 08/04/2025 CT/GC AND TRICH OMONA S VAGIN CARLA (RRNA ), THINP REP VIAL CT/GC and trichomonas vaginalis (rrna), thinprep SEE RESULT S BELOW negati ve CHLAM YDIA TRACH OMATI S, PCR: Negat kaitlynn NEISS ERIA GONOR RHOEA E, PCR: Negat kaitlynn TRICH OMONA S VAGIN CARLA RIBOS OMAL RNA (RRNA ): Negat kaitlynn Not Available [facility] (Lab) [address] , [place], [address], 08/08/2025 23:43:41 09/06/20 25 09/06/2025 MAMMO , diagn ostic , digit al, bilat eral No observ ation record ed. [address], [place], [address], 09/08/2025 18:29:54 09/07/20 25 09/06/2025 MAMMO , diagn ostic , digit al, bilat eral No observ ation record ed. [address], [place], [address], 09/08/2025 18:29:54 Result Notes None recorded. Problems Name Problem SNOMED Code Status Onset Date Resolution Date Notes Provider Name and Address Organization Details Recorded Time [id number] Completed 022 01/30/2023 [facility] 3 11:19:42 Problem Notes None recorded. Procedures Surgical History Date Name Laterality Status Provider Name and Address Organization Details Recorded Time 2 Date of Last Pap Smear completed [facility] 02/28/2022 14:21:13 2 extraction of wisdom tooth completed [facility] 02/28/2022 14:27:17 Imaging Results None recorded. Procedure Notes None recorded. Medical Equipment None Reported. Allergies No known drug allergies Medications Name Sig Start Date Stop Date Status Note LastModified by Organization Details LastModified Time amoxicillin 500 mg capsule TAKE 1 CAPSULE BY MOUTH EVERY 12 HOURS 12/01 completed Not Available Not Available Not Available azithromyci n 250 mg tablet DIRECTED 02/28 completed Not Available Not Available Not Available ibuprofen 800 mg tablet TAKE 1 ORAL TABLET EVERY 8 HOURS NEEDED FOR PAIN/FEVE R/SWELLIN G. TAKE WITH FOOD. 06/25 completed Not Available Not Available Not Available cephalexin 500 mg capsule TAKE 1 CAPSULE BY MOUTH EVERY 8 HOURS UNTIL FINISHED 12/01 completed Not Available Not Available Not Available mupirocin 2 % topical ointment APPLY TOPICALLY TWICE A DAY 12/01 completed Not Available Not Available Not Available methylpredn isolone 4 mg tablets in a dose pack 01/21 completed Not Available Not Available Not Available medroxyprog esterone 150 mg/mL intramuscul ar suspension INJECT 1 MILLILITE R INTRAMUSC ULARLY EVERY 3 MONTHS 12/01 completed Not Available Not Available Not Available amoxicillin 875 mg-potassiu m clavulanate 125 mg tablet TAKE 1 TABLET BY MOUTH EVERY 12 HOURS FOR 7 DAYS 06/25 completed Not Available Not Available Not Available amoxicillin 500 mg-potassiu m clavulanate 125 mg tablet 01/21 completed Not Available Not Available Not Available ciprofloxac in 0.3 %-dexametha sone 0.1 % ear drops,suspe nsion PLACE 4 DROPS INTO LEFT EAR EVERY 12 HOURS FOR 7 DAYS 08/02 /2023 completed Not Available Not Available Not Available Triveen-Duo DHA 29 mg-1 mg-400 mg oral pack Take 1 tablet daily 12/20 completed Not Available Not Available Not Available Slynd 4 mg (28) tablet TAKE 1 TABLET BY MOUTH EVERY DAY active Not Available Not Available No t Available ID NOW COVID-19 Test Kit TEST DIRECTED 10/04 completed Not Available Not Available Not Available Vitals Date Recorded Body height Body mass index (BMI) Body weight Systolic And Diastolic Provider Name and Address Organization Details Last Updated DateTime 12/01/2023 158.12 cm 31.4 kg/m2 26493.48 g 108/66 mm[Hg] [facility] 12/01/2023 12:01:09 Date Recorded Body height Provider Name an d Address Organization Details Last Updated DateTime 04/08/2023 158.12 cm [facility] 04/08/2023 15:15:43 Date Recorded Body height Provider Name an d Address Organization Details Last Updated DateTime 06/25/2023 158.12 cm [facility] 06/25/2023 19:44:19 Date Recorded Body height Body mass index (BMI) Body weight Systolic And Diastolic Provider Name and Address Organization Details Last Updated DateTime 08/04/2025 158.12 cm 26.3 kg/m2 69505.89 g 107/69 mm[Hg] Rose Jose C [facility] 08/04/2025 10:42:16 Date Recorded Body height Provider Name an d Address Organization Details Last Updated DateTime 09/15/2023 158.12 cm Pauly [facility] 09/15/2023 13:35:49 Social History Question Answer Notes LastModified by Organizat ion Details LastModified Time Tobacco Smoking Status Current Every Day Smoker Marine Pulido [facility] 04/08/2023 14:58:19 Do You Have An Advance Directive? No [email or web address] Information n ot available 02/28/2022 Are You Blind Or Do You Have Difficulty Seeing? No [email or web address] Information n ot available 02/28/2022 What Is Your Level Of Caffeine Consumption? Moderate [email or web address] Information not available 02/28/2022 In The 14 Days Before Symptom Onset, Have You Had Close Contact With A Laboratory-confirm ed COVID-19 While That Case Was Ill? No [email or web address] Information n ot available 02/28/2022 In The 14 Days Before Symptom Onset, Have You Had Close Contact With A Person Who Is Under Investigation For COVID-19 While That Person Was Ill? No [email or web address] Information not available 02/28/2022 Have You Been To An Area Known To Be High Risk For COVID-19? No [email or web address] Information not available 02/28/2022 Are You Deaf Or Do You Have Serious Difficulty Hearing? No [email or web address] Information not available 02/28/2022 What Type Of Diet Are You Following? REGULAR [email or web address] Information n ot available 02/28/2022 What Is The Highest Grade Or Level Of School You Have Completed Or The Highest Degree You Have Received? PA65176-9 [email or web address] Information not available 02/28/2022 Are There Any Guns Present In Your Home? No [email or web address] Information not available 02/28/2022 Do You Use Protection During Sex? No [email or web address] Information not available 02/28/2022 Do You Use Your Seat Belt Or Car Seat Routinely? Yes [email or web address] Information not available 02/28/2022 Do You Have Smoke And Carbon Monoxide Detectors In Your Home? Yes [email or web address] Information not available 02/28/2022 At What Age Did You Start Smoking Tobacco? 19 [email or web address] Information not available 02/28/2022 How Much Tobacco Do You Smoke? 0.5 PPD [email or web address] Information not available 02/28/2022 Do You Use Sunscreen Routinely? Yes [email or web address] Information not available 02/28/2022 Has Tobacco Cessation Counseling Been Provided? No [email or web address] Information not available 04/08/2023 Have You Used IV Drugs? No [email or web address] Information not available 02/28/2022 Do You Have Difficulty Walking Or Climbing Stairs? No Information not available 04/08/2023 Sex: Unknown Functional Status Question Answer Note LastModified by Organizat ion Details LastModified Time Do you use any illicit or recreational drugs? No Information not available 02/28/2022 Do you or have you ever used any other forms of tobacco or nicotine? No [email or web address] Information not available 04/08/2023 What is your level of alcohol consumption? Occasional [email or web address] Information not available 02/28/2022 Are you able to walk independently without assistance or assistive devices? YESWOREST [email or web address] Information not available 02/28/2022 Are you able to care for yourself independently? 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 No Information not available 04/08/2023 What is your exercise level? Moderate [email or web address] Information not available 02/28/2022 Mental Status Question Answer Note LastModified by Organization D etails LastModified Time Do you feel stressed (tense, restless, nervous, or anxious, or unable to sleep at night)? [id number] [email or web address] Information not available 02/28/2022 Family History Relationship Description Onset Age of this Age Resolved Age Notes LastModified by Organization Details LastModified Time Maternal Grandmother Malignant neoplasm of breast 55 [email or web address] Not available 04/08 15:15:57 Maternal Grandmother Malignant neoplasm of breast [email or web address] Not available 04/08 15:15:57 Medical History Condition Response Allergies (Food, seasonal, environmental ) N Other N Drug/Latex Allergies/Reactions N Blood Transfusion N Breast Cancer N Dermatologic Disorders N Lung Disease N Defects or Inherited Disease N Breast Problem N Gestational Diabetes N Hematologic disorders N Anesthesia Complications N History of STI N Deep Vein Thrombosis N Polycystic ovary syndrome N Anxiety Disorder N Autoimmune disease N Arthritis N Polyps N Infertility N Acid Reflux (GERD) N History of abnormal pap N Cancer N Varicosities N Stroke N Neurologic/Epilepsy N Endometriosis N High Cholesterol N Fibromyalgia N Headaches N Kidney Disease N Heart Problems N Thyroid Problems N Kidney or Bladder Problems N GI Problems N Eating Disorder N Anemia N Art (IVF or FET) N Psychiatric Illness N Ovarian Cancer N Diabetes N Pulmonary (TB, Asthma) N Hepatitis/Liver Disease N No Past Medical History N Eczema N Urinary Tract Infection N Abuse/Domestic Violence N Asthma N Trauma/Violence N Depression/ depression N Heart Disease N Pre-Eclampsia N Hypertension N Osteoporosis N Thrombophilias N Gynecological History Statement/Question Response Abnormal Pap N Flow Light Date of Last Mammogram Date of LMP 07/29/2025 N On BCP's at Conception? N STIs/STDs N Was last menstrual period normal Y HPV Vaccine N Duration of Flow (days) 5 Current Control Method BCPs Age at First Child 19 Are cycles usually normal Y Sexually Active? Y Menses Monthly Y Date of DEXA bone scan Age of first menstrual cycle 11 Date of Last Pap Smear 02/28/2022 Sexual Problems? N LMP Approximate N Obstetrics History GPAL:G 3 P 3 0 0 3 Type Value Full Term 3 Living 3 Total 3 Past Encounters Encounter ID Performer Location Encounter Start Date Encounter Closed Date Diagnosis/Indication Diagnosis SNOMED-CT Code Diagnosis ICD10 Code Diagnosis IMO Codes Diagnosis Note [id number] Francis Partida MD [facility] [address] [address] 02/28/2022 12:19:06 02/28/2022 13:12:27 Uncertain viability of 006748735 O36.80X9 Z3A.01 [id number] Kylah Mcgrath CNM [facility] [address] [address] 02/28/2022 12:19:33 02/28/2022 18:13:02 Gynecologic examination 64701911 Z01.419 test positive 971952354 Z32.01 Risk factors addressed: Tobacco Cessation, Safe Sexual Practices, environmen bianca, work hazards, travel restrictio ns, seat belt use.Eat a health well balanced diet, avoid alcohol, tobacco, and street drugs.Enga ge in daily low impact exercise, avoid temperatur e extremes, and cat, rodent, and bird feces.Avoi d travel to areas where zika virus is a concern.Of fered cf/sma/nip t. Desires testing. Handouts given and discussed with patient. ildbirth classes recommende d.New OB sheet given.If previous , counseling . Plan to repeat u/s in 2 weeks d/t size date discrepanc y.Pt verbalizes that she understand s the importance of above instructio ns.All questions were answered.P atient reminded to have annual well woman examinatio n and address [facility] . [id number] MD Beverley Mora [address],[place] [address] 03/14/2022 14:07:25 03/14/2022 15:04:31 [id number] MD Beverley Mora [address],[place] [address] 03/14/2022 14:08:09 03/14/2022 15:21:11 Routine care 535360952 Z34.81 [id number] MD Beverley Mora [address],[place] [address] 04/11/2022 10:56:38 04/11/2022 11:47:18 screening 918919161 Z36.82 [id number] MD Beverley Mora [address],[place] [address] 04/11/2022 10:56:54 04/11/2022 12:00:05 Routine care 160183594 Z34.81 [id number] MD Beverley Mora [address],[place] [address] 05/10/2022 10:13:17 05/10/2022 10:53:41 screening 471222889 Z36.89 Routine an tenatal care 077755096 Z34.81 [id number] MD Beverley Mora [address] [address] 06/06/2022 14:08:30 06/06/2022 15:40:09 screening 612015710 Z36.3 [id number] MD Beverley Mora [address] [address] 06/06/2022 14:10:14 06/06/2022 17:06:00 Routine care 656407830 Z34.81 [id number] Francis Partida MD [facility] [address],[place] [address] 06/27/2022 16:18:04 06/27/2022 17:01:09 Routine care 309328450 Z34.81 [id number] Beverly Moreno [facility] [address],[place] [address] 07/26/2022 15:43:53 07/26/2022 16:04:35 Routine care 189412969 Z34.92 [id number] Beverly Moreno [facility] [address],[place] [address] 08/09/2022 14:53:15 08/12/2022 09:20:10 [id number] Beverly Moreno [facility] [address],[place] [address] 08/14/2022 13:42:28 08/14/2022 15:08:13 Routine care 375694834 Z34.92 [id number] Beverly Moreno [facility] [address],[place] [address] 08/30/2022 14:12:54 08/30/2022 14:39:09 Routine care 453699340 Z34.92 [id number] Beverly Moreno [facility] [address],[place] [address] 09/13/2022 16:01:03 09/13/2022 16:57:26 Routine care 282532830 Z34.92 [id number] Francis Partida MD [facility] [address],[place] [address] 09/13/2022 16:00:43 09/13/2022 16:46:32 Uterine size for dates discrepancy 651387294 O26.849 Z3A.34 [id number] Beverly Moreno [facility] [address],[place] [address] 09/27/2022 15:19:48 09/27/2022 15:49:25 Routine care 792781725 Z34.92 [id number] Carmen Valencia MD [facility] [address],[place] [address] 10/04/2022 13:57:03 10/04/2022 14:38:03 Routine care 611793176 Z34.83 [id number] Carmen Valencia MD [facility] [address],[place] [address] 10/11/2022 12:32:32 10/11/2022 13:36:36 Routine care 779251547 Z34.83 [id number] Beverly Moreno [facility] [address] [place] [address] 10/16/2022 10:52:21 10/16/2022 13:48:30 [id number] [facility] [address] [place] [address] 10/23/2022 09:42:17 10/23/2022 10:47:14 Routine care 661797358 Z34.92 [id number] Beverly Moreno [place] [address] [place] [address] 12/20/2022 12:33:43 12/20/2022 13:46:59 care 771187716 Z39.2 [id number] [facility] [address] [place] [address] 01/21/2023 17:20:20 01/21/2023 18:09:24 Contraception care 072777088 Z30.40 [id number] [facility] [address] [place] [address] 04/08/2023 14:58:14 04/08/2023 15:33:57 Contraception care 370509156 Z30.40 [id number] [facility] [address] [place] [address] 06/25/2023 16:37:21 06/26/2023 10:38:45 Contraception care management 560611947 Z30.9 [id number] [facility] [address] [address] 09/15/2023 12:48:25 09/15/2023 13:43:42 Contraception care management 457755190 Z30.9 [id number] [facility] [address],[place] [address] 12/01/2023 11:48:29 12/01/2023 12:15:21 Contraception care management 268076423 Z30.9 Discussed all control options in great detail. Pt would like to start POP. She is aware of the risks and benefits. She is aware it is not effective for control the first month. She is also aware of the importance of taking at the same time every day. Encouraged use of condoms as the pill does not protect against STD's. Will return in 3 months for med check. Consent was read and signed. Pt verbalized understand ing.rx sentRTC for WWE/med check in 4 monthssmok ing cessation encouraged Time spent in visit is a total of 20 mins with at least 50% of visit consisting of counseling and review of plan of care. [id number] [facility] [address],[place] [address] 08/04/2025 09:26:51 08/04/2025 14:59:58 Gynecologic examination 64231029 Z01.084 [id number] WWEBC - slynd, refills sent x 12 months, r/b/a reviewedPa p - done todaySTI screen - gc/ct/tric h testing added to papRoutine labs - PCPRTC in 1 yr or sooner if needed It is strongly advised to have an annual flu shot and up can obtain at most pharmacies . If you have not had a TDap shot in the last 10 years you should obtain one as well. Discussed with patient & provided with informatio n regarding the HPV vaccine if applicable . Encourage safe sexual practices, to use condoms and limit partners if not already in a monogamous relationsh ip. Do monthly self breast exams. BRCA testing is now available for patients with strong genetic history of female cancer. If interested contact the office. Engage in regular exercise. Avoid tobacco and illicit drugs. This lifestyle behavior pattern will lead to less health conditions and longer life span. If BMI greater than 25 dietary consult advised. Questions answered. Breast lump 91956768 N63 .0 [id number] Bilateral dense breast, right breast lump around 10-11 o'clockima ging ordered Contracept ion care management 693663176 Z30.9 Health Concerns Section Related Observation LastModified by Organization Detai ls LastModified Time None Recorded Concern Status LastModified by Organization Details LastModified Time None Recorded Advance Directives Directive N: Payers Insurance Date Sequence Insurance Name Policy Number Policy Sam Covered Member ID Sam Member ID Guarantor Name 09/08/2025 1 [facility] (MEDICAID HMO) [id number] Nirmala Hidalgo [id number] Nirmala Hidalgo Notes Date Note Type Note Provider Name and Address Organization Details Recorded Time 4 text/html 28yo [id number] for BC consultcurrently on DMPAhas been having trouble loosing weight since starting depo and would like to discuss alternative methodscurrent depo window is 12/01-12/15denies h/o DVT/PE, HTN, Stroke/LA, cancer, liver disease, or migraine with aurashe is a tobacco smoker VICENTE Chapman [address], [place], [address], [facility] 12/01/2023 12:13:17 5 text/html Annual GYNReported by PatientGenitourinary symptomsFor menstrual cycle, patient reportsnormal menses. For urinary symptoms, patient reportsno hematuriaandno incontinence. For vulva, patient reportsno genital lesion. For vagina, patient reportsnormal vaginal discharge.Breast symptomsFor breast, patient reportsno breast pain,no breast lump, andno nipple discharge.ContraceptionFo r current contraception, patient reportssatisfied with current contraceptionandoral contraceptives.Endocrine symptomsFor sexual complaints, patient reportsno sexual complaints,no pain during intercourse, andnormal libido. For menopausal symptoms, patient reportsno menopausal symptomsandnormal vaginal lubrication.Psychological symptomsFor psychological symptoms, patient reportsno depression,no anxiety, andno pmdd.Preventative measuresFor preventive measures, patient reportsencourage self breast examination,encourage regular exercise, andencourage no tobacco use.30yo wweBC - slyndlast pap 2021 wnl noticed a vaginal odor last week that has since resolved VICENTE Chapman [address], [place], [address], [place] [facility] 08/04/2025 14:57:45 OBGyn Episode Ob Episode Information Episode Created Date Number of Fetuses Patient Bloodtype Patient rh Status Prepregnancy Weight lbs Domestic Partner Domestic Partner Phone Father Name Weigher Operator Status 03/14/20 22 1 A Positive 167 CLOSED Fetus Data First Name Last Name Admitted to NICU Weight (g) Sex Living Outcome Pediatric Complications Fetus ID Race Codes Race Delivery Type 2948.34 8 M true Full Term term meconium 80804 Vaginal Delivery Michael Calculation Initial Michael Date Initial Exam Date Initial Exam Provider Initial Ultrasound Date Last Menstrual Period Date Ultra Sound Weeks Gestation 10/26/2022 03/14/2022 03/14/2022 8 Eighteen To Twenty Week Michael Update Ultra Sound Date Fundal Height At Umbil Quickening Date Ultra Sound Latest Weeks Gestation Final Michael Confirmed By Final Michael Confirmed Date Final Michael Date Ultra Sound Latest Days Gestation 0 [email or web address] 03/14/2022 10/22/20 22 0 Pre- Flowsheet Flowsheet Date 03/14/2022 Donis Score Blood Edema Fundus Height Fundus Units Glucose Ketones Leukocytes Nitrite Labor Signs Protein Cervic Dilation Cervic Effacement Cervic Station 8 Type Weight in lbs Pre/Post Dialysis Refused Weight 165.347265538944 BP Diastolic BP Location Tested BP Systolic BP Type 74 R arm 114 sitting Fetus Heart Rate Present A 155 Fetus Movement Comments this patient is a 27-year-ol d 3 para 2001 at 8 weeks gestation who presents for initial care. She has an unremarkable medical, surgical, obstetric history. She has 2 term vaginal births she has no problems today. She is not vaccinated. She was given recommendations on vaccinations. I discussed care with her in great detail. She understands certain risks. We will begin routine care. Flowsheet Date 04/11/2022 Donis Score Blood Edema Fundus Height Fundus Units Glucose Ketones Leukocytes Nitrite Labor Signs Protein Cervic Dilation Cervic Effacement Cervic Station Type Weight in lbs Pre/Post Dialysis Refused BP Diastolic BP Location Tested BP Systolic BP Type Fetus Heart Rate Present Fetus Movement Comments Flowsheet Date 04/11/2022 Donis Score Blood Edema Fundus Height Fundus Units Glucose Ketones Leukocytes Nitrite Labor Signs Protein Cervic Dilation Cervic Effacement Cervic Station 12 Type Weight in lbs Pre/Post Dialysis Refused Weight 163.746861226432 BP Diastolic BP Location Tested BP Systolic BP Type 66 R arm 101 sitting Fetus Heart Rate Present A 159 Fetus Movement Comments no complaints , no problems Flowsheet Date 05/10/2022 Donis Score Blood Edema Fundus Height Fundus Units Glucose Ketones Leukocytes Nitrite Labor Signs Protein Cervic Dilation Cervic Effacement Cervic Station 16 Type Weight in lbs Pre/Post Dialysis Refused Weight 165.152609452900 BP Diastolic BP Location Tested BP Systolic BP Type 66 R arm 104 sitting Fetus Heart Rate Present A 165 Fetus Movement Comments no complaints, no problems, alpha fetoprotein today. Flowsheet Date 06/06/2022 Donis Score Blood Edema Fundus Height Fundus Units Glucose Ketones Leukocytes Nitrite Labor Signs Protein Cervic Dilation Cervic Effacement Cervic Station Type Weight in lbs Pre/Post Dialysis Refused BP Diastolic BP Location Tested BP Systolic BP Type Fetus Heart Rate Present Fetus Movement Comments Flowsheet Date 06/06/2022 Donis Score Blood Edema Fundus Height Fundus Units Glucose Ketones Leukocytes Nitrite Labor Signs Protein Cervic Dilation Cervic Effacement Cervic Station 20 Type Weight in lbs Pre/Post Dialysis Refused Weight 169.547840085156 BP Diastolic BP Location Tested BP Systolic BP Type 59 R arm 96 sitting Fetus Heart Rate Present A 145 Fetus Movement Comments no Problems Flowsheet Date 06/27/2022 Donis Score Blood Edema Fundus Height Fundus Units Glucose Ketones Leukocytes Nitrite Labor Signs Protein Cervic Dilation Cervic Effacement Cervic Station 23 Type Weight in lbs Pre/Post Dialysis Refused Weight 171.607607326857 BP Diastolic BP Location Tested BP Systolic BP Type 63 R arm 97 sitting Fetus Heart Rate Present A 143 Fetus Movement A Yes Comments No complaints, no problems, needs a dentist release Flowsheet Date 07/26/2022 Donis Score Blood Edema Fundus Height Fundus Units Glucose Ketones Leukocytes Nitrite Labor Signs Protein Cervic Dilation Cervic Effacement Cervic Station neg none 26 none trace Type Weight in lbs Pre/Post Dialysis Refused Weight 173.509079908748 BP Diastolic BP Location Tested BP Systolic BP Type 62 94 Fetus Heart Rate Present A 143 Fetus Movement A Yes Comments doing well, planning gct nex t week, no questions or concerns, tdap after 28 weeks Flowsheet Date 08/09/2022 Donis Score Blood Edema Fundus Height Fundus Units Glucose Ketones Leukocytes Nitrite Labor Signs Protein Cervic Dilation Cervic Effacement Cervic Station Type Weight in lbs Pre/Post Dialysis Refused BP Diastolic BP Location Tested BP Systolic BP Type Fetus Heart Rate Present Fetus Movement Comments Flowsheet Date 08/14/2022 Donis Score Blood Edema Fundus Height Fundus Units Glucose Ketones Leukocytes Nitrite Labor Signs Protein Cervic Dilation Cervic Effacement Cervic Station neg none 30 none trace Type Weight in lbs Pre/Post Dialysis Refused Weight 174.75222841022 BP Diastolic BP Location Tested BP Systolic BP Type 68 108 Fetus Heart Rate Present A 144 Present Fetus Movement A Yes Comments patient is having some pain, discharge, nausea and vomiting. precautions reviewed, f/u 2 weeks Flowsheet Date 08/30/2022 Donis Score Blood Edema Fundus Height Fundus Units Glucose Ketones Leukocytes Nitrite Labor Signs Protein Cervic Dilation Cervic Effacement Cervic Station neg none 28 none trace Type Weight in lbs Pre/Post Dialysis Refused Weight 175.688830562066 BP Diastolic BP Location Tested BP Systolic BP Type 66 103 Fetus Heart Rate Present Fetus Movement A Yes Comments patient states that she is h aving cramping, discharge and nausea. measuring smaller this week, baby is now head down, check growth next visit, +FM, no complaints precautions reviewed, call for preadmit Flowsheet Date 09/13/2022 Donis Score Blood Edema Fundus Height Fundus Units Glucose Ketones Leukocytes Nitrite Labor Signs Protein Cervic Dilation Cervic Effacement Cervic Station Type Weight in lbs Pre/Post Dialysis Refused BP Diastolic BP Location Tested BP Systolic BP Type Fetus Heart Rate Present Fetus Movement Comments Flowsheet Date 09/13/2022 Donis Score Blood Edema Fundus Height Fundus Units Glucose Ketones Leukocytes Nitrite Labor Signs Protein Cervic Dilation Cervic Effacement Cervic Station neg none none trace Type Weight in lbs Pre/Post Dialysis Refused Weight 178.947368188776 BP Diastolic BP Location Tested BP Systolic BP Type 71 107 Fetus Heart Rate Present Fetus Movement A Yes Comments patient c/o nausea efw 44%, precautions reviewed, preadmission scheduled. GBS in 2 weeks Flowsheet Date 09/27/2022 Donis Score Blood Edema Fundus Height Fundus Units Glucose Ketones Leukocytes Nitrite Labor Signs Protein Cervic Dilation Cervic Effacement Cervic Station neg none 36 none trace Type Weight in lbs Pre/Post Dialysis Refused Weight 180.802116473729 BP Diastolic BP Location Tested BP Systolic BP Type 67 101 Fetus Heart Rate Present A 154 Present Fetus Movement A Yes Comments patient is having cramping, discharge and nausea. precautions reviewed, sis in law had still at 41 weeks, worried, discussed movement, to LD if any concerns, gbs done, f/u one week Flowsheet Date 10/04/2022 Donis Score Blood Edema Fundus Height Fundus Units Glucose Ketones Leukocytes Nitrite Labor Signs Protein Cervic Dilation Cervic Effacement Cervic Station neg trace 36 none trace 1cm 30% -3 Type Weight in lbs Pre/Post Dialysis Refused Weight 179.003691376995 BP Diastolic BP Location Tested BP Systolic BP Type 71 112 Fetus Heart Rate Present A 135 Fetus Movement A Yes Comments Doing well. GBs neg. NO s/s labor. Discussed kick counts. FU weekly Flowsheet Date 10/11/2022 Donis Score Blood Edema Fundus Height Fundus Units Glucose Ketones Leukocytes Nitrite Labor Signs Protein Cervic Dilation Cervic Effacement Cervic Station neg trace 34 none trace 1cm Type Weight in lbs Pre/Post Dialysis Refused Weight 181.967077728050 BP Diastolic BP Location Tested BP Systolic BP Type 67 104 Fetus Heart Rate Present A 160 Fetus Movement A Yes Comments Doing fine. Good FM. SOme cr amping. FU weekly. Labor precautions. Flowsheet Date 10/16/2022 Donis Score Blood Edema Fundus Height Fundus Units Glucose Ketones Leukocytes Nitrite Labor Signs Protein Cervic Dilation Cervic Effacement Cervic Station neg none none trace 1cm Type Weight in lbs Pre/Post Dialysis Refused Weight 180.045630130748 BP Diastolic BP Location Tested BP Systolic BP Type 62 104 Fetus Heart Rate Present Fetus Movement A Yes Comments patient is having some cramp ing and discharge and nausea. reviewed precautions would like IOL after 40 weeks scheduled for 12/2 with sp f/u next week Flowsheet Date 10/23/2022 Donis Score Blood Edema Fundus Height Fundus Units Glucose Ketones Leukocytes Nitrite Labor Signs Protein Cervic Dilation Cervic Effacement Cervic Station neg none 39 none trace 3cm 80% -2 Type Weight in lbs Pre/Post Dialysis Refused Weight 183.146233815323 BP Diastolic BP Location Tested BP Systolic BP Type 73 118 Fetus Heart Rate Present A 134 Present Fetus Movement A Yes Comments patient is having cramping, discharge and nausea. lots of cntx this am, cntx during exam moderate to palpation, to LD for labor eval Flowsheet Date 12/20/2022 Donis Score Blood Edema Fundus Height Fundus Units Glucose Ketones Leukocytes Nitrite Labor Signs Protein Cervic Dilation Cervic Effacement Cervic Station Type Weight in lbs Pre/Post Dialysis Refused Weight 170.575768675254 BP Diastolic BP Location Tested BP Systolic BP Type 69 105 Fetus Heart Rate Present Fetus Movement Comments Flowsheet Date 01/21/2023 Donis Score Blood Edema Fundus Height Fundus Units Glucose Ketones Leukocytes Nitrite Labor Signs Protein Cervic Dilation Cervic Effacement Cervic Station Type Weight in lbs Pre/Post Dialysis Refused BP Diastolic BP Location Tested BP Systolic BP Type Fetus Heart Rate Present Fetus Movement Comments Menstrual History Last Menstrual Date Menses Monthly On Bcp Conception Prior Menses Frequency Hcg Plus Date Menarche Onset Age Genetic Screening And Infection History Question Response Note Mental Retardation/Autism false Patient's Age Will Be 35 Years Or Older At Estim ated Date of Delivery false Thalassemia (German, Eritrean, Mediterranean, Or Background): MCV < 80 false Neural Tube Defect (Meningomyelocele, Spina Bifi da, Or Anencephaly) false Congenital Heart Defect false Down Syndrome false Mehrdad-Sachs (eg, Lutheran, Cajun, Barbadian-Clark) f alse Ashley Disease false Sickle Cell Disease Or Trait () false Hemophilia Or Other Blood Disorders false Muscular Dystrophy false Cystic Fibrosis false [place]'s Chorea false Intellectual Disability/Autism false If Yes, Was Person Tested For Fragile X? false Other Inherited Genetic Or Chromosomal Disorder false Maternal Metabolic Disorder (eg, Type 1 Diabetes , PKU) false Patient Or Baby's Father Had A Child With Defects Not Listed Above false Recurrent Loss, Or A Stillbirth false Medications (including Suppl ements, Vitamins, Herbs, OTC Drugs), Illicit/Recreational Drugs, Alcohol false If Yes, Agent(s) And Strength/Dosage false Any Other Genetic History false Live With Someone With TB Or Exposed To TB false Patient Or Partner Has History Of Genital Herpes false Rash Or Viral Illness Since Last Menstrual Perio d false History Of STD, Gonorrhea, Chlamydia, HPV, Syphi lis false Other Infection History false History of HIV false History of Hepatitis false Prior GBS-infected child false Hemoglobinopathy Or Carrier false Other Structural Defect false Recent Travel History Outside of Country false Delivery Information Delivery Date Delivery Type Labor Anesthesia Weeks Gestation Incision Type Labor Labor Length Hrs Delivered By Post Complications Tubal Sterilization Discharge Date Comments 2 Jungeorge [facility] idural 40.2 false Beverly Moreno JT Discharge Information Feeding Method Contraceptive Method Maternal HG B and HCT Levels Ob Episode Information Episode Created Date Number of Fetuses Patient Bloodtype Patient rh Status Prepregnancy Weight lbs Domestic Partner Domestic Partner Phone Father Name Weigher Operator Status 02/29/20 22 1 CLOSED Fetus Data First Name Last Name Admitted to NICU Weight (g) Sex Living Outcome Pediatric Complications Fetus ID Race Codes Race Delivery Type 3089.86 8704 M Full Term [id number] Vaginal Delivery Michael Calculation Initial Michael Date Initial Exam Date Initial Exam Provider Initial Ultrasound Date Last Menstrual Period Date Ultra Sound Weeks Gestation 0 Eighteen To Twenty Week Michael Update Ultra Sound Date Fundal Height At Umbil Quickening Date Ultra Sound Latest Weeks Gestation Final Michael Confirmed By Final Michael Confirmed Date Final Michael Date Ultra Sound Latest Days Gestation 0 0 Menstrual History Last Menstrual Date Menses Monthly On Bcp Conception Prior Menses Frequency Hcg Plus Date Menarche Onset Age Delivery Information Delivery Date Delivery Type Labor Anesthesia Weeks Gestation Incision Type Labor Labor Length Hrs Delivered By Post Complications Tubal Sterilization Discharge Date Comments 6 40 Discharge Information Feeding Method Contraceptive Method Maternal HG B and HCT Levels Ob Episode Information Episode Created Date Number of Fetuses Patient Bloodtype Patient rh Status Prepregnancy Weight lbs Domestic Partner Domestic Partner Phone Father Name Weigher Operator Status 02/29/20 22 1 CLOSED Fetus Data First Name Last Name Admitted to NICU Weight (g) Sex Living Outcome Pediatric Complications Fetus ID Race Codes Race Delivery Type 2834.95 F Full Term 30203 Vaginal Delivery Michael Calculation Initial Michael Date Initial Exam Date Initial Exam Provider Initial Ultrasound Date Last Menstrual Period Date Ultra Sound Weeks Gestation 0 Eighteen To Twenty Week Michael Update Ultra Sound Date Fundal Height At Umbil Quickening Date Ultra Sound Latest Weeks Gestation Final Michael Confirmed By Final Michael Confirmed Date Final Michael Date Ultra Sound Latest Days Gestation 0 0 Menstrual History Last Menstrual Date Menses Monthly On Bcp Conception Prior Menses Frequency Hcg Plus Date Menarche Onset Age Delivery Information Delivery Date Delivery Type Labor Anesthesia Weeks Gestation Incision Type Labor Labor Length Hrs Delivered By Post Complications Tubal Sterilization Discharge Date Comments 5 40 Discharge Information Feeding Method Contraceptive Method Maternal HG B and HCT Levels
--- OUTSIDE RECORDS SUMMARY | 2025-10-04 14:41 | XMS_ITS | Clinical Summary ---
Author Organization [facility] Address [address] [place] [address] Phone Care Team Providers Care Resolution Specialist Name Role Phone LEONARD BOWERS DO Unavailable [phone] Reason for Visit and Chief Complaint The [...] condition worsens or new symptoms arise - Last Documented On 12/09/2021 10:46AM ; [facility] Go to ER for difficulty breathing - Last Documented On 12/09/2021 10:46AM ; [facility] Recommend rest, increase fluid intake - Last Documented On 12/09/2021 10:46AM ; [facility] Pending Tests Order Diagnosis Results Due Ordering Tirso schwab In office procedures - *Clia Waived Labs SARS COVID TESTING (VERITOR) CONTACT WITH AND (SUSPECTED) EXPOSURE TO COVID-19 12/23/21 JOCELINE ROSARIO UNIT ASSEMBLER Last Documented On 10:46AM ; [facility] Assessments Includes: Assessments from this encounter Findings - [H66.93 - Otitis media, unspecified, bilateral] Acute otitis media of both ears - Last Documented On 12/09/2021 10:46AM ; [facility] Medical Equipment - Implanted Devices Includes: Current Devices No Medical Equipment Recorded Medications Includes: Medications discussed during this encounter and other current Medications New / Renewed during this visit JOCELINE ROSARIO UNIT ASSEMBLER on 12/09/2021 Amoxicillin-Pot Clavulanate 875-125 MG Oral Tablet Provider: JOCELINE Siddiqui NP 10 day supply: 20 tablet, 0 refills Diagnosis: Otitis media, unspecified, bilateral One tablet twice a day Pharmacy: [facility] [address], [address] - Last Documented On 12/09/2021 10:31AM By JOCELINE ROSARIO INSIDE BARREL LATHE OPERATOR ; [facility] Current Medications (continue as prescribed) Zithromax Z-Ojse 250 MG Oral Tablet 11/29/2021 Provider: LUIS FERNANDO FARIAS Diagnosis: Acute maxillary sinusitis, unspecified as directed Last Documented On 5:08PM By LUIS FERNANDO ACOSTA UNIT ASSEMBLER- ; [facility] Medications Administered Includes: Administered Medications from this encounter No Administered Medications Recorded Vital Signs Includes: Vital Signs from this encounter Vital Name 12/09/2021 10:11A Pulse Rate-Sitting (bpm) 54 Temp-Oral (F) 99 Oxygen Saturation (%) 99 Last Documented: On 12/09/2021 10:12A M ; [facility] Results Includes: Results discussed during this encounter Rapid COVID Test [facility] Ordered by JOCELINE FLETCHER on 2021 Collected: Reported: 12/09/2021 10:29 Last Documented On 10:29AM ; [facility] Reviewed on 12/09/2021; All test results are final unless otherwise noted. Rapid COVId neg N (Normal) Last Documented On 10:29AM ; [facility] Int. QC Acceptable yes N (Normal) Last Documented On 2 10:29AM ; [facility] Lot # and Exp. Date [id number] 02/04/22 N (Normal) Last Documented On 10:29AM ; [facility] History of Present Illness Includes: History of Present Illness from this encounter CONNOR RUIZ is a 26 year old female. - Allergy list reviewed - Medication list reviewed - No systemic symptoms - Head symptoms - Otolaryngeal symptoms - No cardiovascular symptoms - Pulmonary symptoms - No gastrointestinal symptoms - No musculoskeletal symptoms - No skin symptoms Patient is being seen for continued cough, headache, runny nose, and ear pain. She tested negative on 11/29 and was started on azithromycin. She states her symptoms did not get any better while on the antibiotic. Social History Description Last Updated Current smoker 12/09/2021 Last Documented On 2 10:46AM ; [facility] Smoking Status Unknown Procedures and Surgical History Includes: Procedures from this encounter Procedures Code Diagnosis Performing Provider Service L ocation Service Date plan of care reviewed and agreed to Last Documented On 2 10:28AM ; [facility] use of tobacco assessment performed 1000F Last Documented On 2 10:14AM ; [facility] review of medications documented 1160F Last Documented On 2 10:14AM ; [facility] Medical History Includes: Medical History addressed during this encounter Description Last Updated Contact with and (Suspected) exposure to COVID-19 12/09/2021 Last Documented On 2 10:46AM ; [facility] Date COVID symptoms started: 11/18/2021 12/09/2021 Last Documented On 2 10:46AM ; [facility] No fall 12/09/2021 Last Documented On 2 10:46AM ; [facility] Family History Includes: Family History addressed during this encounter No Family History Recorded Review of Systems Includes: Review of Systems from this encounter Systemic: Not feeling poorly (malaise). No fever and no chills. Head: Headache. No sinus pain. Otolaryngeal: Earache and nasal discharge. No sore throat. Cardiovascular: No chest pain or discomfort and no palpitations. Pulmonary: No dyspnea. Cough. No wheezing. Gastrointestinal: No nausea, no vomiting, no abdominal pain, and no diarrhea. Musculoskeletal: No muscle aches. Mental Status Includes: Mental Status from this encounter Description Oriented to time, place, and person Functional Status Includes: Functional Status from this encounter No Functional Status Recorded Physical Exam Includes: Physical Exam from this encounter Allergies Includes: Active Allergies No Known Allergies Encounters Encounter Provider Location Date Check-In Time Check-Out Time Diagnosis COVID SICK VISIT- ESTABLISHED PATIENT JOCELINE ROSARIO UNIT ASSEMBLER [facility] 12/09/19 22 9:59AM 10:38AM Otitis Media Acute of Both Ears Insurance Includes: Active Insurance Policies Plan Name Member ID Group # Subscriber Relationship Effect [email or web address] Dates 1 - [facility] [id number] BEAU RUIZ Self Clinical Notes Includes: Clinical Notes from this encounter No Clinical Notes Recorded
--- OUTSIDE RECORDS SUMMARY | 2025-10-04 14:41 | XMS_ITS | Clinical Summary ---
Author Organization [facility] Address [address] [place] [address] Phone Care Team Providers Care Lead Developer Name Role Phone LEONARD BOWERS DO Unavailable [phone] Reason for Visit and Chief Complaint The Chief Complaint is: Pt c/o cough, congestion, runny nose. She was exposed on Friday and isn't vaccinated Problems Includes: Problems addressed during this encounter and other active Problems No Active Problems Plan of Treatment - Return to the clinic if condition worsens or new symptoms arise - Last Documented On 11/29/2021 5:02PM ; [facility] - Follow-up visit in 1-2 weeks with an office visit or sooner if symptoms persist or worsen - Last Documented On 11/29/2021 5:02PM ; [facility] - Patient to call if problem develops - Last Documented On 11/29/2021 5:02PM ; [facility] Instructions to patient Go to the emergency room if condition worsens Last Documented On 2 4:48PM ; [facility] Watch for signs/symptoms of infection Last Documented On 2 4:48PM ; [facility] Watch for signs/symptoms of infection, return to the clinic if seen Last Documented On 2 4:48PM ; [facility] Education and Decision Aids were provided during visit for: Patient education about anti biotics: need to finish even if feeling better Last Documented On 2 4:48PM ; [facility] Assessments Includes: Assessments from this encounter Findings - Acute sinusitis - Last Documented On 11/29/2021 5:02PM ; [facility] Instructions Includes: Instructions from this encounter Instructions to patient Go to the emergency room if condition worsens Last Documented On 2 4:48PM ; [facility] Watch for signs/symptoms of infection Last Documented On 2 4:48PM ; [facility] Watch for signs/symptoms of infection, return to the clinic if seen Last Documented On 2 4:48PM ; [facility] Education and Decision Aids were provided during visit for: Patient education about anti biotics: need to finish even if feeling better Last Documented On 2 4:48PM ; [facility] Medical Equipment - Implanted Devices Includes: Current Devices No Medical Equipment Recorded Medications Includes: Medications discussed during this encounter and other current Medications New / Renewed during this visit LUIS FERNANDO FLETCHER-YANNA on 11/29/2021 Zithromax Z-Jose 250 MG Oral Tablet Provider: LUIS FERNANDO FARIAS 5 day supply: 6 tablet, 0 refills Diagnosis: Acute maxillary sinusitis, unspecified as directed Pharmacy: [address], [address] - Last Documented On 2 5:08PM By LUIS FERNANDO FARIAS ; [facility] Past Medications on file Amoxicillin-Pot Clavulanate 875-125 MG Oral Tablet 12/09/2021 - 12/19/2021 Provider: JOCELINE FLETCHER Diagnosis: Otitis media, unspecified, bilateral One tablet twice a day Last Documented On 12/09/2021 10:31AM By JOCELINE ROSARIO CLIENT SERVICES ANALYST ; [facility] Medications Administered Includes: Administered Medications from this encounter No Administered Medications Recorded Vital Signs Includes: Vital Signs from this encounter Vital Name 11/29/2021 04:18P Pulse Rate-Sitting (bpm) 74 Temp-Oral (F) 98.8 Oxygen Saturation (%) 97 Last Documented: On 11/29/2021 4:19PM ; [facility] Results Includes: Results discussed during this encounter No Results Recorded For Specified Dates History of Present Illness Includes: History of Present Illness from this encounter CONNOR RUIZ is a 26 year old female. - Headache - Facial pain - Sinus pain - No neck pain - No swollen glands in the neck - No eye symptoms - The ears feel pressured on the right - On the left - Nasal discharge purulent - Postnasal drip - Nasal passage blockage (stuffiness) - Sore throat comes and goes - No sneezing - No nasal itching - No chest pain or discomfort - Cough - No dyspnea - No wheezing - No heartburn - No nausea - No vomiting - No abdominal pain - No diarrhea - Vertigo - No skin symptoms pt to clinic for above symptoms x 10 days she was exposed to covid 6 days ago Social History No Social History Recorded - Smoking Status Unknown Procedures and Surgical History Includes: Procedures from this encounter Procedures Code Diagnosis Performing Provider Service L ocation Service Date medication instruction Last Documented On 2 4:48PM ; [facility] continue current medication Last Documented On 2 4:48PM ; [facility] the options include decongestants as nee ded per product instructions Last Documented On 2 4:48PM ; [facility] the options include antihistamines as ne eded per product instructions Last Documented On 2 4:48PM ; [facility] watch for signs/symptoms of infection Last Documented On 2 4:48PM ; [facility] watch for signs/symptoms of infection, r eturn to the clinic if seen Last Documented On 2 4:48PM ; [facility] Pt to use prescription as ordered. Purpo se of and use of medication discussed.~ Last Documented On 2 4:48PM ; [facility] Pt to use OTC fever/pain product as need ed per product instruction.~ Last Documented On 2 4:48PM ; [facility] Pt to use OTC cough product as needed pe r product instruction.~ Last Documented On 2 4:48PM ; [facility] Pt to use OTC expectorant product as nee ded per product instruction.~ Last Documented On 2 4:48PM ; [facility] plan of care reviewed and agreed to by t he patient Last Documented On 2 4:48PM ; [facility] Medical History Includes: Medical History addressed during this encounter Description Last Updated Contact with and (Suspected) exposure to COVID-19 11/29/2021 Last Documented On 2 5:02PM ; [facility] Date COVID symptoms started: 11/19/2021 11/29/2021 Last Documented On 2 5:02PM ; [facility] No fall 11/29/2021 Last Documented On 2 5:02PM ; [facility] Family History Includes: Family History addressed during this encounter No Family History Recorded Review of Systems Includes: Review of Systems from this encounter Systemic: No fever, no chills, and no night sweats. Head: Headache. Otolaryngeal: Nasal discharge. Pulmonary: Chronic cough. Mental Status Includes: Mental Status from this encounter No Mental Status Recorded Functional Status Includes: Functional Status from this encounter No Functional Status Recorded Physical Exam Includes: Physical Exam from this encounter Allergies Includes: Active Allergies No Known Allergies Encounters Encounter Provider Location Date Check-In Time Check-Out Time Diagnosis COVID SICK VISIT- NEW PATIENT LUIS FERNANDO ACOSTA [employer]PER[employer] [facility] 11/29/19 22 4:05PM 4:36PM Sinusitis Acute Insurance Includes: Active Insurance Policies Plan Name Member ID Group # Subscriber Relationship Effect kaitlynn Dates 1 - [facility] [id number] BEAU Vizcarra Clinical Notes Includes: Clinical Notes from this encounter No Clinical Notes Recorded
== END 2025-10-04 14:36 | disposition home or self-care (01) ==
PROVIDERS: Visit Provider Surgery
DX: C50.911 Malignant neoplasm of unspecified site of right female breast (principal)
CPT/HCPCS: 77049; A9577; C8908

== ENCOUNTER 2025-10-13 11:16 | Outpatient (CLI) | payer OTHER, SELFPAY ==
--- OUTSIDE RECORDS SUMMARY | 2025-10-13 11:00 | XMS_ITS | Encounter Summary ---
Author Organization [facility] Address [address] [place] [address] Care Team Providers Care Disability Representative Name Role Phone Unavailable Primary Care Provider Unavailabl e Reason for Referral * PET Scan (Routine) - Open Specialty Diagnoses / Procedures Referred By Contskip t Referred To Contact Diagnoses Malignant neoplasm of breast in female, estrogen receptor positive, unspecified laterality, unspecified site of breast (CMS/HCC) Procedures PET TUMOR OR INFECTION IMG W CT SKB Suri Pittman MD [address] [place] [address] Phone: tel: fax: [place] [phone] Referral ID Status Reason Start Date Expiration Date V isits Requested Visits Authorized [id number] Open [facility] CTS 10/13/2025 11/13/2026 1 1 EE GROWER Encounter Details Date Type Department Care Team (Late st Contact Info) Description 10/13/2025 11:00 AM COFFEE GROWER Office Visit [facility] Oncology and Hematology [facility] [address] [place] [address] Suri Pittman MD [address] [place] [address] Malignant neoplasm of breast in female, estrogen receptor positive, unspecified laterality, unspecified site of breast (CMS/HCC) (Primary Dx) Social History Tobacco Use Types Packs/Day Years Used Date Smoking Tobacco: Every Day Cigarettes 0.5 12 Started: 10/13/2013 Smokeless Tobacco: Never Tobacco Cessation:Ready to Q uit: Not Asked; Counseling Given: Not Answered Alcohol Use Standard Drinks/Week Comments Yes 0 (1 standard drink = 0.6 oz pur e alcohol) Occasionally Comments Unknown Sex and Gender Information Value Date Recorded Sex Assigned at Not on file Legal Sex Female 11:09 AM COFFEE GROWER Gender Identity Not on file Sexual Orientation Not on file documented as of this encounter Last Filed Vital Signs Vital Sign Reading Time Taken Comments Blood Pressure 135/87 10/13/2025 10:23 AM COFFEE GROWER Pulse 58 10/13/2025 10:23 AM COFFEE GROWER Temperature 36.1 C (96.9 F) 10/13/2025 10:23 AM COFFEE GROWER Respiratory Rate 15 10/13/2025 10:23 AM COFFEE GROWER Oxygen Saturation 98% 10/13/2025 10:23 AM COFFEE GROWER Inhaled Oxygen Concentration - - Weight 66.2 kg (146 lb) 10/13/2025 10:23 AM COFFEE GROWER Height 154.9 cm (5' 1) 10/13/2025 10:23 AM COFFEE GROWER Body Mass Index 27.59 10/13/2025 10:23 AM COFFEE GROWER documented in this encounter Plan of Treatment Upcoming Encounters Date Type Department Care Team (Late st Contact Info) Description 11/02/2025 2:45 PM COFFEE GROWER Office Visit [facility] Oncology and Hematology - [place] [address] [facility] [address] [place] [address] Sean Nicholson MD [address] [facility] [address] [place] [address] Scheduled Orders Name Type Priority Associated Diagnoses Orde r Schedule COMPREHENSIVE METABOLIC PANEL Lab Stat Malignant neoplasm of breast in female, estrogen receptor positive, unspecified laterality, unspecified site of breast (CMS/HCC) Expected: 10/13/2025, Expires: 10/13/2026 CBC WITH DIFFERENTIAL Lab Stat Malignant neoplasm of breast in female, estrogen receptor positive, unspecified laterality, unspecified site of breast (CMS/HCC) Expected: 10/13/2025, Expires: 10/13/2026 PET TUMOR OR INFECTION IMG W CT SKB [facility] Imaging Routine Malignant neoplasm of breast in female, estrogen receptor positive, unspecified laterality, unspecified site of breast (CMS/HCC) 1 Occurrences starting 10/13/2025 until 10/13/2026 documented as of this encounter Visit Diagnoses Diagnosis Malignant neoplasm of breast in female, estrogen receptor positive, unspecified laterality, unspecified site of breast (CMS/HCC)- Primary documented in this encounter
[2025-10-13 11:27] LABS: Hematocrit 44.8 % (37.0-47.0); Hemoglobin 14.5 g/dL (12.0-15.0); Immature Granulocyte Percent A 0.4 % (0-0.5); Lymphocytes Absolute Auto 3.04 K/mm3 (0.9-3.2); Mean Corpuscular HGB Conc 32.4 g/dl (32-36); Mean Corpuscular Hemoglobin 30.3 pg (26-34); Mean Corpuscular Volume 93.7 fl (80-100); Nucleated Red Blood Cells Absolute Auto 0.000 K/mm3 (0.0-0.012); Nucleated Red Blood Cells Perc 0.0 % (0.0-0.2); Platelet Count Result 237 k/mm3 (150-375); Red Blood Count 4.78 M/mm3 (4.2-5.4); White Blood Count 11.1 K/mm3 (4.5-10.0)
--- OUTSIDE RECORDS SUMMARY | 2025-10-13 14:02 | XMS_ITS | Data Portability ---
Author Organization [facility] Address [address] [address] [place] [address] Assessment Encounter Date Assessment Date Assessment LastModified by Organization Details LastModified Time 08/04/2025 08/04/2025 Annual gynecological exam performed. Patient will come back in a year unless there are new symptoms. [email or web address] Not available 08/04/2025 10:40:59 Plan of Treatment Reminders Order Date Submit Date Provider Last Modified By Organization Details Last Modified Time Details Appointments None recorded. Lab pap, IG + HR HPV - HPV regardless but if HPV is positive need subtyping 16,18/45 add sti to pap gc/ct/trich 2024 025 [facility] (Lab), [address] [facility], [place], [address], 23:43:41 Referral None recorded. Procedures None recorded. Surgeries None recorded. Imaging MAMMO, diagnostic, digital, bilateral [address] [facility], [address], [address], [place], [address], 09:05:52 US, breast, unilateral - Bilateral dense breast, right breast lump around 10- oclock [address] [facility], [address], [address], [place], [address], 5 04:00:55 Medication Orders Slynd 4 mg (28) tablet 2024 025 [id number], [address] [place], [address], 5 11:00:27 Slynd 4 mg (28) tablet 2023 024 [id number], [address] [place], [address], 4 12:09:50 Depo-Singe Winder a 150 mg/mL intramuscul ar suspension 2022 023 [email or web address] Not available 4 12:09:32 Depo-Singe Winder a 150 mg/mL intramuscul ar suspension 2022 023 [email or web address] Not available 4 12:09:32 Depo-Singe Winder a 150 mg/mL intramuscul ar suspension 2022 [...] as clini dee wetzel nted. Not Available [facility] (Lab) [address] [facility], [place], [address], 08/08/2025 23:43:41 08/04/20 25 08/04/2025 CT/GC AND TRICH OMONA S VAGIN CARLA (RRNA ), THINP REP VIAL CT/GC and trichomonas vaginalis (rrna), thinprep SEE RESULT S BELOW negati ve CHLAM YDIA TRACH OMATI S, PCR: Negat kaitlynn NEISS ERIA GONOR RHOEA E, PCR: Negat kaitlynn TRICH OMONA S VAGIN CARLA RIBOS OMAL RNA (RRNA ): Negat kaitlynn Not Available [facility] (Lab) [address] , [place], [address], 08/08/2025 23:43:41 09/06/20 25 09/06/2025 MAMMO , diagn ostic , digit al, bilat eral No observ ation record ed. [address], [place], [address], 09/08/2025 18:29:54 09/07/20 25 09/06/2025 MAMMO , diagn ostic , digit al, bilat eral No observ ation record ed. [address], [place], [address], 09/08/2025 18:29:54 Result Notes None recorded. Problems Name Problem SNOMED Code Status Onset Date Resolution Date Notes Provider Name and Address Organization Details Recorded Time [id number] Completed 022 01/30/2023 Shannan Crawley [facility], [facility] 3 11:19:42 Problem Notes None recorded. Procedures Surgical History Date Name Laterality Status Provider Name and Address Organization Details Recorded Time 2 Date of Last Pap Smear completed [facility] 02/28/2022 14:21:13 2 extraction of wisdom tooth completed [facility] 02/28/2022 14:27:17 Imaging Results None recorded. [...] Updated DateTime 12/01/2023 158.12 cm 31.4 kg/m2 45294.48 g 108/66 mm[Hg] Pauly [facility] 12/01/2023 12:01:09 Date Recorded Body height Provider Name an d Address Organization Details Last Updated DateTime 04/08/2023 158.12 [facility] 04/08[facility]2023 15:15:43 Date Recorded Body height Provider Name an d Address Organization Details Last Updated DateTime 06/25/2023 158.12 [facility] 06/25/2023 19:44:19 Date Recorded Body height Body mass index (BMI) Body weight Systolic And Diastolic Provider Name and Address Organization Details Last Updated DateTime 08/04/2025 158.12 cm 26.3 kg/m2 72133.89 g 107/69 mm[Hg] Rose Jose C [facility] 08/04/2025 10:42:16 Date Recorded Body height Provider Name an d Address Organization Details Last Updated DateTime 09/15/2023 158.12 cm Pauly [facility] 09/15/2023 13:35:49 Social History Question Answer Notes LastModified by Organizat ion Details LastModified Time Tobacco Smoking Status Current Every Day Smoker [facility] 04/08/2023 14:58:19 Do You Have An Advance Directive? No [email or web address] Information n ot available 02/28/2022 Are You Blind Or Do You Have Difficulty Seeing? No [email or web address] Information n ot available 02/28/2022 What Is Your Level Of Caffeine Consumption? Moderate [email or web address] Information not available 02/28/2022 In The 14 Days Before Symptom Onset, Have You Had Close Contact With A Laboratory-confirm ed COVID-19 While That Case Was Ill? No [email or web address] Information n ot available 02/28/2022 In The 14 Days Before Symptom Onset, Have You Had Close Contact With A Person Who Is Under Investigation For COVID-19 While That Person Was Ill? No [email or web address] Information not available 02/28/2022 Have You Been To An Area Known To Be High Risk For COVID-19? No [email or web address] Information not available 02/28/2022 Are You Deaf Or Do You Have Serious Difficulty Hearing? No [email or web address] Information not available 02/28/2022 What Type Of Diet Are You Following? REGULAR [email or web address] Information n ot available 02/28/2022 What Is The Highest Grade Or Level Of School You Have Completed Or The Highest Degree You Have Received? [id number] Information not available 02/28/2022 Are There Any Guns Present In Your Home? No Information not available 02/28/2022 Do You Use Protection During Sex? No [email or web address] Information not available 02/28/2022 Do You Use Your Seat Belt Or Car Seat Routinely? Yes [email or web address] Information not available 02/28/2022 Do You Have Smoke And Carbon Monoxide Detectors In Your Home? Yes [email or web address] Information not available 02/28/2022 At What Age Did You Start Smoking Tobacco? 19 [email or web address] Information not available 02/28/2022 How Much Tobacco Do You Smoke? 0.5 PPD [email or web address] Information not available 02/28/2022 Do You Use Sunscreen Routinely? Yes [email or web address] Information not available 02/28/2022 Has Tobacco Cessation Counseling Been Provided? No Information not available 04/08/2023 Have You Used IV Drugs? No [email or web address] Information not available 02/28/2022 Do You Have Difficulty Walking Or Climbing Stairs? No [email or web address] Information not available 04/08/2023 Sex: Unknown Functional Status Question Answer Note LastModified by Organizat ion Details LastModified Time Do you use any illicit or recreational drugs? No [email or web address] Information not available 02/28/2022 Do you or have you ever used any other forms of tobacco or nicotine? No [email or web address] Information not available 04/08/2023 What is your level of alcohol consumption? Occasional [email or web address] Information not available 02/28/2022 Are you able to walk independently without assistance or assistive devices? YESWOREST [email or web address] Information not available 02/28/2022 Are you able to care for yourself independently? 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 No [email or web address] Information not available 04/08/2023 What is your exercise level? Moderate [email or web address] Information not available 02/28/2022 Mental Status Question Answer Note LastModified by Organization D etails LastModified Time Do you feel stressed (tense, restless, nervous, or anxious, or unable to sleep at night)? [id number] [email or web address] Information not available 02/28/2022 Family History Relationship Description Onset Age of this Age Resolved Age Notes LastModified by Organization Details LastModified Time Maternal Grandmother Malignant neoplasm of breast 55 [email or web address] Not available 04/08 15:15:57 Maternal Grandmother Malignant neoplasm of breast [email or web address] Not available 04/08 15:15:57 Medical History Condition Response Allergies (Food, seasonal, environmental ) N Other N Blood Transfusion N Drug/Latex Allergies/Reactions N Breast Cancer N Dermatologic Disorders N Lung Disease N Defects or Inherited Disease N Breast Problem N Gestational Diabetes N Hematologic disorders N Anesthesia Complications N History of STI N Deep Vein Thrombosis N Polycystic ovary syndrome N Anxiety Disorder N Autoimmune disease N Arthritis N Infertility N Polyps N Acid Reflux (GERD) N History of abnormal pap N Cancer N Stroke N Varicosities N Neurologic/Epilepsy N Endometriosis N High Cholesterol N Headaches N Fibromyalgia N Kidney Disease N Heart Problems N Kidney or Bladder Problems N Thyroid Problems N GI Problems N Eating Disorder [...] ICD10 Code Diagnosis IMO Codes Diagnosis Note [id number] Francis Partida MD [facility] [address] [address] 02/28/2022 12:19:06 02/28/2022 13:12:27 Uncertain viability of 393144319 O36.80X9 Z3A.01 [id number] Kylah Mcgrath CNM [facility] [address] [address] 02/28/2022 12:19:33 02/28/2022 18:13:02 Gynecologic examination 11169607 Z01.419 test positive 145441116 Z32.01 Risk factors addressed: Tobacco Cessation, Safe [...] annual well woman examinatio n and address [facility] . [id number] MD Beverley Mora [address] [address] 03/14/2022 14:07:25 03/14/2022 15:04:31 [id number] MD Beverley Mora [address] [address] 03/14/2022 14:08:09 03/14/2022 15:21:11 Routine care 878813336 Z34.81 [id number] MD Beverley Mora [address] [address] 04/11/2022 10:56:38 04/11/2022 11:47:18 screening 358089779 Z36.82 [id number] MD Beverley Mora [address] [address] 04/11/2022 10:56:54 04/11/2022 12:00:05 Routine care 653988356 Z34.81 [id number] MD Beverley Mora [address] [address] 05/10/2022 10:13:17 05/10/2022 10:53:41 screening 688962807 Z36.89 Routine an tenatal care 607155755 Z34.81 [id number] MD Beverley Mora [address] [address] 06/06/2022 14:08:30 06/06/2022 15:40:09 screening 989931361 Z36.3 [id number] MD Beverley Mora [address] [address] 06/06/2022 14:10:14 06/06/2022 17:06:00 Routine care 082163796 Z34.81 [id number] Francis Partida MD [facility] [address] [address] 06/27/2022 16:18:04 06/27/2022 17:01:09 Routine care 286425677 Z34.81 [id number] Beverly Moreno [facility] [address] [address] 07/26/2022 15:43:53 07/26/2022 16:04:35 Routine care 818198703 Z34.92 [id number] Beverly Moreno [facility] [address] [address] 08/09/2022 14:53:15 08/12/2022 09:20:10 [id number] Beverly Moreno [facility] [address] [address] 08/14/2022 13:42:28 08/14/2022 15:08:13 Routine care 654174190 Z34.92 [id number] Beverly Moreno [facility] [address] [address] 08/30/2022 14:12:54 08/30/2022 14:39:09 Routine care 448376883 Z34.92 [id number] Beverly Moreno [facility] [address] [address] 09/13/2022 16:01:03 09/13/2022 16:57:26 Routine care 497173882 Z34.92 [id number] Francis Partida MD [facility] [address] [address] 09/13/2022 16:00:43 09/13/2022 16:46:32 Uterine size for dates discrepancy 600599357 O26.849 Z3A.34 [id number] Beverly Moreno [facility] [address],[place] [address] 09/27/2022 15:19:48 09/27/2022 15:49:25 Routine care 743872054 Z34.92 [id number] Carmen Valencia MD [facility] [address] [address] 10/04/2022 13:57:03 10/04/2022 14:38:03 Routine care 182835123 Z34.83 [id number] Carmen Valencia MD [facility] [address] [address] 10/11/2022 12:32:32 10/11/2022 13:36:36 Routine care 328875462 Z34.83 [id number] Beverly Moreno [facility] [address] [place] [address] 10/16/2022 10:52:21 10/16/2022 13:48:30 [id number] [facility] [address] [place] [address] 10/23/2022 09:42:17 10/23/2022 10:47:14 Routine care 266610640 Z34.92 [id number] Beverly Moreno [place] [address] [place] [address] 12/20/2022 12:33:43 12/20/2022 13:46:59 care 044075878 Z39.2 [id number] [facility] [address] [place] [address] 01/21/2023 17:20:20 01/21/2023 18:09:24 Contraception care 497366090 Z30.40 [id number] [facility] [address] [place] [address] 04/08/2023 14:58:14 04/08/2023 15:33:57 Contraception care 460460318 Z30.40 [id number] [facility] [address] [place] [address] 06/25/2023 16:37:21 06/26/2023 10:38:45 Contraception care management 316645349 Z30.9 [id number] [facility] [address] [address] 09/15/2023 12:48:25 09/15/2023 13:43:42 Contraception care management 419730044 Z30.9 [id number] [facility] [address] [address] 12/01/2023 11:48:29 12/01/2023 12:15:21 Contraception care management 265459119 Z30.9 Discussed all control options in great [...] counseling and review of plan of care. [id number] [facility] [address] [address] 08/04/2025 09:26:51 08/04/2025 14:59:58 Gynecologic examination 55794501 Z01.494 [id number] [facility] - slynd, refills sent x 12 [...] dietary consult advised. Questions answered. Breast lump 78248277 N63 .0 [id number] Bilateral dense breast, right breast lump around 10-11 o'clockima ging ordered Contracept ion care management 256407556 Z30.9 Health Concerns Section Related Observation LastModified by Organization Detai ls LastModified Time None Recorded Concern Status LastModified by Organization Details LastModified Time None Recorded Advance Directives Directive N: Payers Insurance Date Sequence Insurance Name Policy Number Policy Sam Covered Member ID Sam Member ID Guarantor Name 09/08/2025 1 [facility] (MEDICAID HMO) [id number] Nirmala Hidalgo [id number] Nirmala Hidalgo Notes Date Note Type Note Provider Name and Address Organization Details Recorded Time 4 text/html 28yo [id number] for BC consultcurrently on DMPAhas been having trouble loosing weight since starting depo and would like to discuss alternative methodscurrent depo window is 12/01-12/15denies h/o DVT/PE, HTN, Stroke/OH, cancer, liver disease, or migraine with aurashe is a tobacco smoker VICENTE Chapman [address], [place], [address], [facility] 12/01/2023 12:13:17 5 text/html Annual GYNReported [...] since resolved VICENTE Chapman [address], [place], [address], [place] [facility] 08/04/2025 14:57:45 OBGyn Episode Ob Episode Information Episode Created Date Number of Fetuses Patient Bloodtype Patient rh Status Prepregnancy Weight lbs Domestic Partner Domestic Partner Phone Father Name Tree Girdler Status 03/14/20 22 1 A Positive 167 CLOSED Fetus Data First Name Last Name Admitted to NICU Weight (g) Sex Living Outcome Pediatric Complications Fetus ID Race Codes Race Delivery Type 2948.34 8 M true Full Term term meconium [id number] Vaginal Delivery Michael Calculation Initial Michael Date [...] Date Ultra Sound Latest Days Gestation 0 [email or web address] 03/14/2022 10/22/20 22 0 Pre- Flowsheet Flowsheet Date 03/14/2022 Donis Score Blood Edema Fundus Height Fundus Units Glucose Ketones Leukocytes Nitrite Labor Signs Protein Cervic Dilation Cervic Effacement Cervic Station 8 Type Weight in lbs Pre/Post Dialysis Refused Weight 165.603575556065 BP Diastolic BP Location Tested BP Systolic [...] Weight in lbs Pre/Post Dialysis Refused Weight 163.146752254697 BP Diastolic BP Location Tested BP Systolic BP Type 66 R arm 101 sitting Fetus Heart Rate Present A 159 Fetus Movement Comments no complaints , no problems Flowsheet Date 05/10/2022 Odnis Score Blood Edema Fundus Height Fundus Units Glucose Ketones Leukocytes Nitrite Labor Signs Protein Cervic Dilation Cervic Effacement Cervic Station 16 Type Weight in lbs Pre/Post Dialysis Refused Weight 165.829713637806 BP Diastolic BP Location Tested BP Systolic [...] Weight in lbs Pre/Post Dialysis Refused Weight 169.315415145029 BP Diastolic BP Location Tested BP Systolic BP Type 59 R arm 96 sitting Fetus Heart Rate Present A 145 Fetus Movement Comments no Problems Flowsheet Date 06/27/2022 Donis Score Blood Edema Fundus Height Fundus Units Glucose Ketones Leukocytes Nitrite Labor Signs Protein Cervic Dilation Cervic Effacement Cervic Station 23 Type Weight in lbs Pre/Post Dialysis Refused Weight 171.710706993696 BP Diastolic BP Location Tested BP Systolic [...] Weight in lbs Pre/Post Dialysis Refused Weight 173.021336218848 BP Diastolic BP Location Tested BP Systolic [...] Weight in lbs Pre/Post Dialysis Refused Weight 174.08859669220 BP Diastolic BP Location Tested BP Systolic [...] Weight in lbs Pre/Post Dialysis Refused Weight 175.788980966765 BP Diastolic BP Location Tested BP Systolic [...] Weight in lbs Pre/Post Dialysis Refused Weight 178.066866288355 BP Diastolic BP Location Tested BP Systolic [...] Weight in lbs Pre/Post Dialysis Refused Weight 180.206124436065 BP Diastolic BP Location Tested BP Systolic [...] Weight in lbs Pre/Post Dialysis Refused Weight 179.449584893480 BP Diastolic BP Location Tested BP Systolic [...] Weight in lbs Pre/Post Dialysis Refused Weight 181.311851030076 BP Diastolic BP Location Tested BP Systolic [...] Weight in lbs Pre/Post Dialysis Refused Weight 180.005380602212 BP Diastolic BP Location Tested BP Systolic [...] Weight in lbs Pre/Post Dialysis Refused Weight 183.588427682067 BP Diastolic BP Location Tested BP Systolic [...] Weight in lbs Pre/Post Dialysis Refused Weight 170.421149818566 BP Diastolic BP Location Tested BP Systolic [...] Estim ated Date of Delivery false Thalassemia (Korean, Japanese, Mediterranean, Or Background): MCV < 80 false Neural Tube Defect (Meningomyelocele, Spina Bifi da, Or Anencephaly) false Congenital Heart Defect false Down Syndrome false Mehrdad-Sachs (eg, Zoroastrianism, Cajun, Welsh-Amelia) f alse Ashley Disease false Sickle Cell Disease Or Trait () false Hemophilia Or Other Blood Disorders false Muscular Dystrophy false Cystic Fibrosis false Walthall's Chorea false Intellectual Disability/Autism false If Yes, [...] Tubal Sterilization Discharge Date Comments 2 Junge[facility] idural 40.2 false Beverly Moreno JT Discharge Information Feeding Method Contraceptive Method Maternal HG B and HCT Levels Ob Episode Information Episode Created Date Number of Fetuses Patient Bloodtype Patient rh Status Prepregnancy Weight lbs Domestic Partner Domestic Partner Phone Father Name Tree Girdler Status 02/29/20 22 1 CLOSED Fetus Data First Name Last Name Admitted to NICU Weight (g) Sex Living Outcome Pediatric Complications Fetus ID Race Codes Race Delivery Type 3089.86 8704 M Full Term 19948 Vaginal Delivery Michael Calculation Initial Michael Date [...] Domestic Partner Domestic Partner Phone Father Name Tree Girdler Status 02/29/20 22 1 CLOSED Fetus Data First Name Last Name Admitted to NICU Weight (g) Sex Living Outcome Pediatric Complications Fetus ID Race Codes Race Delivery Type 2834.95 F Full Term 91547 Vaginal Delivery Michael Calculation Initial Michael Date [...]
--- OUTSIDE RECORDS SUMMARY | 2025-10-13 14:03 | XMS_ITS | Clinical Summary ---
Author Organization [facility] [place] [facility]3] Padmini Foster Address [address] [place] [address] Care Team Providers Care Energy Conservation Director Name Role Phone Unavailable Primary Care Provider Unavailabl e Allergies No known active allergies Medications No known medications Encounters Date Type Department Care Team Description 10/13/2025 11:00 AM COMPUTER PROCESSING SCHEDULER Office Visit [facility]3] Oncology and Hematology - Prabhjot [address] [place] [address] Suri Pittman MD Malignant neoplasm of breast in female, estrogen receptor positive, unspecified laterality, unspecified site of breast (CMS/HCC) (Primary Dx) from Last 3 Months Family History Medical History Relation Name Comments No Known Problems Brother 1 No Known Problems Brother 2 No Known Problems Brother 3 No Known Problems Child 1 No Known Problems Child 2 No Known Problems Child 3 No Known Problems Father No Known Problems Mother Relation Name Status Comments Brother 1 Alive Brother 2 Alive Brother 3 Alive Child 1 Alive Child 2 Alive Child 3 Alive Father Alive Mother Alive Social History Tobacco Use Types Packs/Day Years [...] on file Legal Sex Female 11:09 AM COMPUTER PROCESSING SCHEDULER Gender Identity Not on file Sexual Orientation Not on file Last Filed Vital Signs Vital Sign Reading Time Taken Comments Blood Pressure 135/87 10/13/2025 10:23 AM COMPUTER PROCESSING SCHEDULER Pulse 58 10/13/2025 10:23 AM COMPUTER PROCESSING SCHEDULER Temperature 36.1 C (96.9 F) 10/13/2025 10:23 AM COMPUTER PROCESSING SCHEDULER Respiratory Rate 15 10/13/2025 10:23 AM COMPUTER PROCESSING SCHEDULER Oxygen Saturation 98% 10/13/2025 10:23 AM COMPUTER PROCESSING SCHEDULER Inhaled Oxygen Concentration - - Weight 66.2 kg (146 lb) 10/13/2025 10:23 AM COMPUTER PROCESSING SCHEDULER Height 154.9 cm (5' 1) 10/13/2025 10:23 AM COMPUTER PROCESSING SCHEDULER Body Mass Index 27.59 10/13/2025 10:23 AM COMPUTER PROCESSING SCHEDULER Plan of Treatment Upcoming Encounters Date Type Department Care Team (Late st Contact Info) Description 11/02/2025 2:45 PM COMPUTER PROCESSING SCHEDULER Office Visit [facility] [facility]3] Oncology and Hematology - Prabhjot [address] [facility] [address] [place] [address] Sean Nicholson MD [address] [facility] [address] [place] [address] Health Maintenance Due Date Last Done Comments DTAP/TDAP/TD VACCINES (1 - Tdap) 02/03/2012 HEPATITIS B VACCINES (1 of 3 - 19+ 3-dose series) 02/03/2012 HPV/Cotest (21-29) 2014 HPV VACCINES (1 - 3-dose SCDM series) 02/03/2020 HPV/Cotest (30-65) 2023 INFLUENZA VACCINE (#1) 2025 Preventative Visit-Managed Medicaid 08/05/202608/04, 02/28/2022 CERVICAL CANCER SCREENING 08/04/2028 PAP SMEAR 08/04/2028 08/04/2025 Insurance [employer] [place]
--- OUTSIDE RECORDS SUMMARY | 2025-10-13 14:03 | XMS_ITS | Continuity of Care Document ---
Author Organization [facility] Address [address] [place] [address] Assessment Encounter Date Assessment Date Assessment LastModified by Organization Details LastModified Time 08/04/2025 08/04/2025 Annual gynecological exam performed. Patient will come back in a year unless there are new symptoms. [email or web address] Not available 08/04/2025 10:40:59 Plan of Treatment Reminders Order Date Submit Date Provider Last Modified By Organization Details Last Modified Time Details Appointments None recorded. Lab pap, IG + HR HPV - HPV regardless but if HPV is positive need subtyping 16,18/45 add sti to pap gc/ct/trich 2024 025 [facility] (Lab), [address], [place], [address], 23:43:41 Referral None recorded. Procedures None recorded. Surgeries None recorded. Imaging MAMMO, diagnostic, digital, bilateral [address] [facility], [address], [place], [address], 09:05:52 US, breast, unilateral - Bilateral dense breast, right breast lump around 10- oclock [address] [facility], [address], [address], [place], [address], 5 04:00:55 Medication Orders Slynd 4 mg (28) tablet 2024 025 MAN[id number], [address], [place], [address], 11:00:27 Patient TargetsNo targets recorded. Patient InstructionsNo instructions recorded. Reason for Referral None Reported. Results Created Date Observation Date Name Description Value Unit Range Abnormal Flag Note LastModifiedBy Organization Detail LastModifiedTime 08/04/2008/04/2025 IMAGE GUIDE D PAP AND HPV REGAR DLESS image guided Pap, HPV regardless of Pap result SEE RESULT S BELOW CASE REPOR T: Cytol ogy Gynec ologi darryn Repor t Case: [id number] Autho romelia retana Provi nevaeh: Tierra Montiel NP Colle cted: 08/04 1318 Order ing Locat ion: [place] Patho log[facility] Recei kizzy: 08/05 0829 First Scree n: Kai Clayton ed, CT Speci men: Janettetyler weaver Pap - Image d, Cervi x STATE MENT OF ADEQU ACY: Satis facto ry for evalu ation Trans forma tion zone compo nent absen t ----- ----- ----- ----- ----- ----- ----- ----- ----- ----- ----- ----- ----- ----- ----- ----- ----- ---- FINAL DIAGN OSIS: Negat kaitlynn for Intra epith elial Monica rincon or Jb coates (NIL) . Elect kiersten toure by Kai Clayton ed, CT on 2024 [...] as clini dee wetzel nted. Not Available [facility] (Lab) [address], [place], [address], 08/08/2025 23:43:41 08/04/20 25 08/04/2025 CT/GC AND TRICH OMONA S VAGIN CARLA (RRNA ), THINP REP VIAL CT/GC and trichomonas vaginalis (rrna), thinprep SEE RESULT S BELOW negati ve CHLAM YDIA TRACH OMATI S, PCR: Negat kaitlynn NEISS ERIA GONOR RHOEA E, PCR: Negat kaitlynn TRICH OMONA S VAGIN CARLA RIBOS OMAL RNA (RRNA ): Negat kaitlynn Not Available [facility] (Lab) [address], [place], [address], 08/08/2025 23:43:41 09/06/2009/06/2025 MAMMO , diagn ostic , digit al, bilat eral No observ ation record ed. [address], [place], [address], 09/08/2025 18:29:54 09/07/2009/06/2025 MAMMO , diagn ostic , digit al, bilat eral No observ ation record ed. [address], [place], [address], 09/08/2025 18:29:54 Result Notes None recorded. Problems Name Problem SNOMED Code Status Onset Date Resolution Date Notes Provider Name and Address Organization Details Recorded Time [id number] Completed 022 01/30/2023 Shannan Crawley [facility] 3 11:19:42 Problem Notes None recorded. Procedures Surgical History Date Name Laterality Status Provider Name and Address Organization Details Recorded Time 2 Date of Last Pap Smear completed [facility] 02/28/2022 14:21:13 2 extraction of wisdom tooth completed [facility] 02/28/2022 14:27:17 Imaging Results None recorded. [...] EAR EVERY 12 HOURS FOR 7 DAYS 06/25 [...] Updated DateTime 08/04/2025 158.12 cm 26.3 kg/m2 98218.89 g 107/69 mm[Hg] Rose Woodall [facility] 08/04/2025 10:42:16 Social History Question Answer Notes LastModified by Organizat ion Details LastModified Time Tobacco Smoking Status Current Every Day Smoker Rodolfoyazan Waldropgeetha [facility] 04/08/2023 14:58:19 Do You Have An Advance Directive? No [email or web address] Information n ot available 02/28/2022 Are You Blind Or Do You Have Difficulty Seeing? No [email or web address] Information n ot available 02/28/2022 What Is Your Level Of Caffeine Consumption? Moderate [email or web address] Information not available 02/28/2022 In The 14 Days Before Symptom Onset, Have You Had Close Contact With A Laboratory-confirm ed COVID-19 While That Case Was Ill? No [email or web address] Information n ot available 02/28/2022 In The 14 Days Before Symptom Onset, Have You Had Close Contact With A Person Who Is Under Investigation For COVID-19 While That Person Was Ill? No [email or web address] Information not available 02/28/2022 Have You Been To An Area Known To Be High Risk For COVID-19? No Information not available 02/28/2022 Are You Deaf Or Do You Have Serious Difficulty Hearing? No [email or web address] Information not available 02/28/2022 What Type Of Diet Are You Following? REGULAR [email or web address] Information n ot available 02/28/2022 What Is The Highest Grade Or Level Of School You Have Completed Or The Highest Degree You Have Received? PS62538-2 [email or web address] Information not available 02/28/2022 Are There Any Guns Present In Your Home? No [email or web address] Information not available 02/28/2022 Do You Use Protection During Sex? No Information not available 02/28/2022 Do You Use Your Seat Belt Or Car Seat Routinely? Yes [email or web address] Information not available 02/28/2022 Do You Have Smoke And Carbon Monoxide Detectors In Your Home? Yes [email or web address] Information not available 02/28/2022 At What Age Did You Start Smoking Tobacco? 19 [email or web address] Information not available 02/28/2022 How Much Tobacco Do You Smoke? 0.5 PPD Information not available 02/28/2022 Do You Use Sunscreen Routinely? Yes [email or web address] Information not available 02/28/2022 Has Tobacco Cessation Counseling Been Provided? No [email or web address] Information not available 04/08/2023 Have You Used IV Drugs? No Information not available 02/28/2022 Do You Have Difficulty Walking Or Climbing Stairs? No [email or web address] Information not available 04/08/2023 Sex: Unknown Functional Status Question Answer Note LastModified by Organizat ion Details LastModified Time Do you use any illicit or recreational drugs? No [email or web address] Information not available 02/28/2022 Do you or have you ever used any other forms of tobacco or nicotine? No [email or web address] Information not available 04/08/2023 What is your level of alcohol consumption? Occasional [email or web address] Information not available 02/28/2022 Are you able to walk independently without assistance or assistive devices? YESWOREST Information not available 02/28/2022 Are you able to care for yourself independently? 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 No [email or web address] Information not available 04/08/2023 What is your exercise level? Moderate [email or web address] Information not available 02/28/2022 Mental Status Question Answer Note LastModified by Organization D etails LastModified Time Do you feel stressed (tense, restless, nervous, or anxious, or unable to sleep at night)? [id number] [email or web address] Information not available 02/28/2022 Family History Relationship Description Onset Age of this Age Resolved Age Notes LastModified by Organization Details LastModified Time Maternal Grandmother Malignant neoplasm of breast 55 [email or web address] Not available 04/08 15:15:57 Maternal Grandmother Malignant neoplasm of breast [email or web address] Not available 04/08 15:15:57 Medical History Condition Response Allergies (Food, seasonal, environmental ) N Other N Breast Cancer N Drug/Latex Allergies/Reactions N Blood Transfusion N Dermatologic Disorders N Lung Disease N [...] ICD10 Code Diagnosis IMO Codes Diagnosis Note [id number] VICENTE Chapman [place] [address] [address] 08/04/2025 09:26:51 08/04/2025 14:59:58 Gynecologic examination 52367800 Z01.232 [id number] [facility] - slynd, refills sent x 12 [...] dietary consult advised. Questions answered. Breast lump 66686155 N63 .0 [id number] Bilateral dense breast, right breast lump around 10-11 o'clockima ging ordered Contracept ion care management [id number] Z30.9 Health Concerns Section Related Observation LastModified by Organization Detai ls LastModified Time None Recorded Concern Status LastModified by Organization Details LastModified Time None Recorded Payers Encounter Date Sequence Insurance Name Policy Number Policy Sam Covered Member ID Sam Member ID Guarantor Name 08/04/2025 1 [facility] (MEDICAID HMO) [id number] Nirmala King [id number] Nirmala Hidalgo Notes Date Note Type Note Provider Name and Address Organization Details Recorded Time 5 text/html Annual GYNReported by PatientGenitourinary symptomsFor [...] since resolved VICENTE Chapman [address], [place], [address], [place] [facility] 08/04/2025 14:57:45 OBGyn Episode No OBEpisode recorded.
--- OUTSIDE RECORDS SUMMARY | 2025-10-13 14:03 | XMS_ITS | Clinical Summary ---
Author Organization [facility] Address [address] [place] [address] Phone Care Team Providers Care Pattern Cutter Name Role Phone Provider, None Primary Care [...] Comments Blood Pressure 115/57 01/31/2017 11:14 AM SHRIMP CLEANER Pulse 66 01/31/2017 11:14 AM SHRIMP CLEANER Temperature 36.2 C (97.2 F) 01/31/2017 11:14 AM SHRIMP CLEANER Respiratory Rate 19 01/31/2017 11:14 AM SHRIMP CLEANER Oxygen Saturation 100% 01/31/2017 11:14 AM SHRIMP CLEANER Inhaled Oxygen Concentration - - Weight 65.8 kg (145 lb) 01/31/2017 11:14 AM SHRIMP CLEANER Height 154.9 cm (5' 1) 01/31/2017 11:14 AM SHRIMP CLEANER Body Mass Index 27.4 01/31/2017 11:14 AM SHRIMP CLEANER Plan of Treatment Health Maintenance Due Date Last Done Comments Hepatitis C Virus (HCV) Screening 1993 TdaP Immunization 1993 Varicella Immunization (1 of 2 - 13+ 2-dose series) 2006 Hepatitis B Immunization (1 of 3 - 19+ 3-dose series) 02/03/2012 Pap Smear 2014 Human Papillomavirus (HPV) Immunization (1 - 3-dose SCDM series) 02/03/2020 Cervical Cancer Screening (CCS) 2023 HPV/Cotest 2023 Influenza Immunization (#1) 2025 SARS-COV-2 Immunization (2024- season) 2025 Respiratory Syncytial Virus (RSV) Immunization [...] this topic Insurance [place]ID [place] Care Teams Pattern Cutter Relationship Specialty Start Date End Date Provider, None [place] PCP - General 01/31/17
[2025-10-13 14:45] LABS: Alanine Aminotransferase 14 U/L (6-35); Albumin Level 4.4 g/dL (3.5-5.1); Alkaline Phosphatase 64 U/L (38-126); Anion Gap 6 mmol/L (4-12); Aspartate Amino Transferase 25 U/L (14-36); Bilirubin,Total 0.6 mg/dL (0.2-1.3); Blood Urea Nitrogen 9 mg/dL (7-17); Calcium 8.8 mg/dL (8.4-10.2); Carbon Dioxide 24 mmol/L (22-30); Chloride 104 mmol/L (98-107); Estimated Glomerular Filt Rate > 60; Glucose 94 mg/dL (65-110); Potassium 4.1 mmol/L (3.4-5.0); Sodium 134 mmol/L (137-145); Total Protein 7.2 g/dL (6.3-8.2)
== END 2025-10-13 11:17 | disposition home or self-care (01) ==
LOC: ANHLAB 11:17
PROVIDERS: Visit Provider Internal Medicine Hematology & Oncology
DX: C50.919 Malignant neoplasm of unspecified site of unspecified female breast (principal); Z17.0 Estrogen receptor positive status [ER+]
CPT/HCPCS: 36415; 80053; 85025

== ENCOUNTER 2025-10-27 10:34 | Outpatient (CLI) | payer OTHER, SELFPAY ==
--- NOTE | ~2025-10-27 | PE_ITS ---
EXAMINATION: PET skull to mid thigh DATE: 10/27/2025 12:59 INDICATION: Breast cancer TECHNIQUE: Blood glucose level was 100 mg/dL. 10.606 mCi of 18- fluorodeoxyglucose (18-FDG) was administered i.v. Low dose computed tomography (CT) images were acquired from the base of the brain to the proximal thighs for attenuation correction and anatomic localization. Positron emission tomography (PET) images were acquired in the same distribution beginning 54 minutes after injection. Images including fused PET/CT images were reconstructed in axial, coronal, and sagittal planes. Automated exposure control technique was employed. The dose-length product was 676.68mGy-cm. COMPARISON: None FINDINGS: Head/neck: There is symmetric increased activity in the oral cavity, palatine tonsils, parotid glands, laryngeal muscles and ocular muscles without CT correlate, likely physiologic. No pathologically enlarged cervical lymphadenopathy or suspicious foci of increased FDG uptake in the visualized head or neck. Chest: No pulmonary nodules, pneumonia or other pulmonary infiltrates. No pleural effusion. Heart size is normal. No pericardial effusion. Thoracic aorta is normal in caliber. Increased FDG activity with maximal SUV of 10.1 associated with a 1.5 cm round solid nodule in the subareolar right breast consistent with given history of breast cancer. No pathologically enlarged or FDG avid thoracic lymphadenopathy. Abdomen/pelvis/proximal thighs: Physiologic renal accumulation and excretion of FDG activity in the kidneys, bladder and along portions of ureters. Normal degree and heterogenous pattern of increased uptake throughout the liver without radiologic correlate or dominant FDG avid lesion. The gallbladder, pancreas, spleen and bilateral adrenal glands are normal. Mild uptake scattered throughout the bowels without radiologic correlate, also likely physiologic. Normal appendix. Photopenic defect associated with a 2.5 cm left adnexal cyst/follicle. Anteverted uterus and right adnexa are unremarkable. No other abnormal foci of increased FDG uptake or pathologically enlarged lymphadenopathy in the abdomen, pelvis or proximal thighs. Musculoskeletal: Mild lumbar spondylosis. There is decreased anterosuperior femoral head and neck offset with impingement bones at both the left and right proximal femurs which could predispose towards cam-type femoral acetabular impingement. No suspicious lytic, blastic or abnormally FDG avid bone lesions. IMPRESSION: 1. 1.5 cm FDG avid right breast nodule consistent with biopsy-proven breast cancer. No FDG avid lesions suspicious for metastatic disease. Reviewed, dictated and finalized at location A. NEERING INSPECTION ASSISTANT IMPRESSION: 1. 1.5 cm FDG avid right breast nodule consistent with biopsy-proven breast can cer. No FDG avid lesions suspicious for metastatic disease.
--- OUTSIDE RECORDS SUMMARY | 2025-10-27 11:50 | XMS_ITS | Clinical Summary ---
Author Organization [facility] Address [address] [place] [address] Phone Care Team Providers Care Bag Press Operator Name Role Phone Provider, None Primary Care [...] Comments Blood Pressure 115/57 01/31/2017 11:14 AM KENNEL HELPER Pulse 66 01/31/2017 11:14 AM KENNEL HELPER Temperature 36.2 C (97.2 F) 01/31/2017 11:14 AM KENNEL HELPER Respiratory Rate 19 01/31/2017 11:14 AM KENNEL HELPER Oxygen Saturation 100% 01/31/2017 11:14 AM KENNEL HELPER Inhaled Oxygen Concentration - - Weight 65.8 kg (145 lb) 01/31/2017 11:14 AM KENNEL HELPER Height 154.9 cm (5' 1) 01/31/2017 11:14 AM KENNEL HELPER Body Mass Index 27.4 01/31/2017 11:14 AM KENNEL HELPER Plan of Treatment Health Maintenance Due Date [...] this topic Insurance [place]ID [place] Care Teams Bag Press Operator Relationship Specialty Start Date End Date Provider, None [place] PCP - General 01/31/17
--- OUTSIDE RECORDS SUMMARY | 2025-10-27 11:50 | XMS_ITS | Clinical Summary ---
Author Organization [facility] Padmini Foster Address [address] [address] Care Team Providers Care Content Management Specialist Name Role Phone Unavailable Primary Care Provider Unavailabl e Allergies No known active allergies Medications No known medications Active Problems No known active problems Encounters Date Type Department Care Team Description 10/18/2025 External Device Data STL ABSTRACTION Provider, Abstract 10/18/2025 External Device Data STL ABSTRACTION Provider, Abstract 10/18/2025 External Device Data STL ABSTRACTION Provider, Abstract 10/13/2025 11:00 AM PEDIATRIC ANESTHESIOLOGIST Office Visit [facility] Oncology and Hematology - [place] [address] [place] [address] Suri Pittman MD Malignant neoplasm of breast [...] on file Legal Sex Female 11:09 AM PEDIATRIC ANESTHESIOLOGIST Gender Identity Not on file Sexual Orientation Not on file Last Filed Vital Signs Vital Sign Reading Time Taken Comments Blood Pressure 135/87 10/13/2025 10:23 AM PEDIATRIC ANESTHESIOLOGIST Pulse 58 10/13/2025 10:23 AM PEDIATRIC ANESTHESIOLOGIST Temperature 36.1 C (96.9 F) 10/13/2025 10:23 AM PEDIATRIC ANESTHESIOLOGIST Respiratory Rate 15 10/13/2025 10:23 AM PEDIATRIC ANESTHESIOLOGIST Oxygen Saturation 98% 10/13/2025 10:23 AM PEDIATRIC ANESTHESIOLOGIST Inhaled Oxygen Concentration - - Weight 66.2 kg (146 lb) 10/13/2025 10:23 AM PEDIATRIC ANESTHESIOLOGIST Height 154.9 cm (5' 1) 10/13/2025 10:23 AM PEDIATRIC ANESTHESIOLOGIST Body Mass Index 27.59 10/13/2025 10:23 AM PEDIATRIC ANESTHESIOLOGIST Plan of Treatment Upcoming Encounters Date Type Department Care Team (Late st Contact Info) Description 11/02/2025 2:45 PM PEDIATRIC ANESTHESIOLOGIST Office Visit [facility] Oncology and Hematology - [place] [address] [facility] [address] [place] [address] Sean Nicholson MD [address] [facility] [address] [facility] [address] [place] [address] Health Maintenance Due Date Last Done Comments DTAP/TDAP/TD VACCINES (1 - Tdap) 02/03/2012 HEPATITIS B VACCINES (1 of 3 - 19+ 3-dose series) 02/03/2012 HPV/Cotest (21-29) 2014 HPV/Cotest (30-65) 2023 INFLUENZA VACCINE (#1) 2025 Preventative Visit-Managed Medicaid 08/05/202608/04, 02/28/2022 CERVICAL CANCER SCREENING 08/04/2028 PAP SMEAR 08/04/2028 08/04/2025 HPV VACCINES (No Doses Required) Completed Insurance [place] [facility] Address: [address] [address]
== END 2025-10-27 10:35 | disposition home or self-care (01) ==
PROVIDERS: PCP Nurse Practitioner; Visit Provider Internal Medicine Hematology & Oncology
DX: C50.919 Malignant neoplasm of unspecified site of unspecified female breast (principal)
CPT/HCPCS: 78815; A9552